=== PATIENT | female | born 1970 | race Caucasian/White ===

== ENCOUNTER 2016-12-19 13:42 | Emergency (ER) | payer OTHER, MEDICAID ==
--- NOTE | 2016-12-19 14:36 | CPEKG ---
Heart Rate: 72 RR Interval: 833 P-R Interval: 164 QRSD Interval: 88 QT Interval: 380 QTC Interval: 416 P [place]: 21 QRS [place]: 39 T Wave [place]: 39 EKG Severity - NORMAL ECG - EKG Impression: SINUS RHYTHM Electronically Signed By: Elroy Guerin 19-Dec-2016 15:15:18
--- NOTE | 2016-12-19 14:43 | EDPHY ---
H & P Smoking Status: Never smoked Time Seen by Provider: 12/19/16 14:29 HPI/ROS: HPI Headache, vertigo, shortness of breath, 46-year-old female by private vehicle with her mother. This patient has multiple complaints, she reports onset of a sensation of shortness of breath which she states is different from her asthma exacerbations. She reports she has had this for the last 3 days. She also reports associated vertigo. She describes this as the room spinning around. She also describes having a headache which she describes as being on the top of her head and a dull ache and pressure like sensation. She also complains of feeling extremely fatigued over the last several days and having left shoulder aching without any history of trauma for that time period as well.. ROS: Constitutional: No fever, no chills. As above. Eyes: No discharge. No changes in vision. ENT: No sore throat. No nasal congestion or rhinorrhea. Respiratory: No cough. As above. Cardiac: No chest pain, no palpitations. Gastrointestinal: No abdominal pain, no vomiting, no diarrhea. Genitourinary: No hematuria. No dysuria or increased frequency with urination. Musculoskeletal: No back pain. No neck pain. No myalgias or arthralgias. Skin: No rashes. Neurological: Headache as above. No focal weakness or altered sensation. As above. Past medical history: Type type 1 diabetes, chronic abdominal pain, severe PTSD with psychotic features, , carpal tunnel syndrome. Social history: She is here with her mother. She lives with her mother. Nonsmoker. No alcohol. Denies IV drugs or street drugs. Physical Exam: General Appearance: Alert, no distress. Moderately obese habitus. This patient is responding to questions appropriately and in full sentences. This patient appears well-hydrated and well-nourished. Eyes: Pupils equal and round no pallor or injection. No lid edema, erythema or injection. No nystagmus. No photophobia ENT, Mouth: Mucous membranes are moist. The pharyngeal tissues are unremarkable. No edema or swelling. No asymmetry suggestive of abscess. No erythema or exudates. Respiratory: There are no retractions, lungs are clear to auscultation with good air movement bilaterally. No wheezing. No rhonchi. No tachypnea. Cardiovascular: Regular rate and rhythm. No murmur. Gastrointestinal: Abdomen is soft and nontender, no masses, bowel sounds normal. No focal tenderness at McBurney's point. No Aguilar sign. Neurological: Motor sensory function is grossly intact. Cranial nerves are normal. Gait is normal. Skin: Warm and dry, no rashes. Musculoskeletal: Neck is supple and nontender. No pain on flexion of the neck. No tenderness on palpation of the lateral neck soft tissues as well as the suboccipital area. No carotid bruits auscultated. Extremities are symmetrical. All joints range without pain or impingement. Psychiatric: No agitation. No depression. Database: EKG: EKG time is 2:34 p.m.; EKG shows a narrow complex normal sinus rhythm with a ventricular rate of 70 to. The NH, QRS, QT intervals are within normal limits. There are no ST-T wave changes indicative of ischemic or injury pattern. No evidence of right heart strain. Interpreted by me. Imaging: CT head without contrast: Chest x-ray AP portable; the cardiac mediastinal silhouette is unremarkable. No evidence of infiltrate or pneumothorax. No acute cardiopulmonary disease process noted. Interpreted by me. Procedures: Emergency department course: IV placed. She was placed on a monitor. She was started on IV normal saline, 500 cc to be given over the next hour. She was given 25 mg of oral meclizine. 2:55 p.m., the patient's emergency department workup is just been initiated. Her care was turned over to Dr. Isaias Iyer at this time. Differential Diagnosis: The differential diagnosis on this patient includes but is not limited to peripheral vertigo, reactive airway disease, pulmonary embolism, viral syndrome. This represents a partial list of diagnoses considered. These considerations are based on history, physical exam, past history, reassessment and diagnostic testing. (Elroy Guerin) Constitutional: Initial Vital Signs Temperature (C) 36.5 C 12/19/16 13:48 Heart Rate 86 12/19/16 13:48 Respiratory Rate 16 12/19/16 13:48 Blood Pressure 151/76 H 12/19/16 13:48 O2 Sat (%) 97 12/19/16 13:48 O2 Delivery Mode Room Air Allergies/Adverse Reactions: Penicillins Allergy (Verified 07/02/15 20:57) NAUSEA PERCOCET Allergy (Uncoded 11/23/12 13:53) NAUSEA Home Medications: Medication Instructions Recorded Albuterol [Proventil Inhaler HFA 1 - 2 puffs IH Q4 PRN 09/01/13 (*)] Albuterol [Proventil Neb] 3 ml IH QID PRN 09/01/13 Aspirin [Aspirin 81mg (*)] 81 mg PO DAILY 09/01/13 Budesonide/Formoterol 160/4.5 1 puffs IH BID PRN 09/01/13 [Symbicort 160-4.5 Mcg Inh (*)] Cetirizine [ZyrTEC 10 mg (*)] 10 mg PO DAILY 09/01/13 Cholecalciferol Vit D3 [Vitamin D3 1,000 units PO DAILY 09/01/13 (*)] EPINEPHrine [Epipen] 0.3 mg IM DAILY PRN 09/01/13 Estrogen,Angelica/Me-Testosterone 1 each PO DAILY 09/01/13 [Estratest Tablet 1.25/2.5 mg] Furosemide [Lasix 20 MG (*)] 20 mg PO DAILY 09/01/13 Herbals/Supplements -Info Only 1 each PO AD 09/01/13 Humalog Pump 1 each SC AD 09/01/13 Ibuprofen [Motrin (*)] 400 mg PO BID PRN 09/01/13 LORazepam [Ativan (*)] 1 mg PO BID PRN 09/01/13 Levothyroxine [Synthroid 25 mcg 25 mcg PO DAILY06 09/01/13 (*)] Lisinopril [Zestril 5 mg (*)] 5 mg PO HS 09/01/13 Metoclopramide [Reglan 10 mg tab 10 mg PO HS 09/01/13 (*)] Minocycline HCl 100 mg PO HS 09/01/13 Montelukast Sodium [Singulair 10 10 mg PO DAILY 09/01/13 mg (*)] Multivitamins [Multivitamin (*)] 1 each PO DAILY 09/01/13 Pantoprazole Sodium [Protonix 40mg 40 mg PO BID 09/01/13 (*)] QUEtiapine FUMARATE [Seroquel 50 100 mg PO HS 09/01/13 mg (*)] Sertraline HCl [Zoloft 50mg (*)] 150 mg PO DAILY 09/01/13 buPROPion XL [Wellbutrin 150mg XL] 150 mg PO DAILY 09/01/13 guaiFENesin [Guaifenesin] 800 mg PO BID 09/01/13 traZODone [traZODONE 50MG (*)] 50 - 100 mg PO HS 09/01/13 Metoclopramide [Reglan 10 mg tab 10 mg PO QID PRN #40 tab 09/04/13 (*)] Ondansetron Odt [Zofran Odt] 4 mg PO Q4PRN PRN #20 tab 07/02/15 oxyCODONE/APAP 5/325 [Percocet 1 - 2 tab PO Q4H PRN #20 tab 07/02/15 5/325 (*)] Hydrocodone/APAP 5/325 [[place] 1 each PO Q4-6PRN PRN #8 tab 12/19/16 5/325 (*)] Medical Decision Making - Diagnostics Imaging Results: Imaging Impressions Chest X-Ray 12/19/16 14:50 Impression: Peribronchial thickening, which could be related to bronchitis or mild fluid overload. Head CT 12/19/16 14:50 Impression: 1. No significant intracranial abnormality seen. 2. Mild right frontal nonspecific sinus disease. Findings discussed with Dr. Isaias Iyer at 15:24 hour, 12/19/2016. Head CT reviewed by me and discussed with Dr. Garrison shows right frontal sinusitis but no intracranial pathology (Isaias Iyer) ED Course/Re-evaluation: Re-evaluation 3:40 p.m.--patient is stable. She does complain of headache and would like something for her headache. The patient, her mom, and I discussed imaging lab EKG results. We discussed treatment plan including the fact that the workup is normal. We discussed criteria for return and importance of follow -up and further evaluation Re-evaluation again at 4:35 p.m.--patient is stable. We again reviewed lab results as well as imaging studies. She would like meclizine called into [facility] in [place]. She would like something for headache be on Tylenol and ibuprofen. She will be given a prescription for 8 hydrocodone tablets (Isaias Iyer) Differential Diagnosis: This could be viral syndrome. We considered intracranial bleeding. No evidence for infection or meningitis. No acute coronary syndrome. (Isaias Iyer) - Data Points Laboratory Results: Laboratory Results 12/19/16 14:33 12/19/16 14:33 12/19/16 12/19/16 12/19/16 15:15 14:33 14:33 WBC RBC Hgb Hct MCV MCH MCHC RDW Plt Count MPV Neut % (Auto) Lymph % (Auto) [place] % (Auto) Eos % (Auto) Baso % (Auto) Nucleat RBC Rel Count Absolute Neuts (auto) Absolute Lymphs (auto) Absolute Monos (auto) Absolute Eos (auto) Absolute Basos (auto) Absolute Nucleated RBC Immature Gran % Immature Gran # PT 13.7 SEC SEC (12.0-15.0) INR 1.06 (0.83-1.16) APTT 21.8 SEC L SEC (23.0-38.0) D-Dimer 0.38 ug/mLFEU ug/mLFEU (0.00-0.50) Sodium 136 mEq/L mEq/L (134-144) Potassium 4.3 mEq/L mEq/L (3.5-5.2) Chloride 104 mEq/L mEq/L (97-110) Carbon Dioxide 24 mEq/l mEq/l (22-31) Anion Gap 8 mEq/L mEq/L (8-16) BUN 13 mg/dL mg/dL (7-23) Creatinine 0.8 mg/dL mg/dL (0.6-1.0) Estimated GFR > 60 Glucose 203 mg/dL H mg/dL (70-100) Calcium 9.6 mg/dL mg/dL (8.5-10.4) Creatine Kinase 49 IU/L IU/L (0-156) CK-MB (CK-2) Fraction 0.38 ng/mL ng/mL (0-3.19) Troponin I < 0.012 ng/mL ng/mL (0-0.034) NT-Pro-B Natriuret Pep 134 pg/mL H pg/mL (0-125) Urine Color PALE YELLOW Urine Appearance CLEAR Urine pH 8.0 H (5.0-7.5) Ur Specific [place] 1.006 (1.002-1.030) Urine Protein NEGATIVE (NEGATIVE) Urine Ketones NEGATIVE (NEGATIVE) Urine Blood NEGATIVE (NEGATIVE) Urine Nitrate NEGATIVE (NEGATIVE) Urine Bilirubin NEGATIVE (NEGATIVE) Urine Urobilinogen NEGATIVE EU EU (0.2-1.0) Ur Leukocyte Esterase TRACE H (NEGATIVE) Urine RBC 1-3 /hpf /hpf (0-3) Urine WBC 1-3 /hpf /hpf (0-3) Ur Epithelial Cells TRACE /lpf /lpf (NONE-1+) Urine Bacteria TRACE /hpf H /hpf (NONE SEEN) Urine Mucus TRACE /lpf /lpf (NONE-1+) Urine Glucose NEGATIVE (NEGATIVE) 12/19/16 14:33 WBC 7.32 10^3/uL 10^3/uL (3.80-9.50) RBC 4.31 10^6/uL 10^6/uL (4.18-5.33) Hgb 12.3 g/dL L g/dL (12.6-16.3) Hct 35.0 % L % (38.0-47.0) MCV 81.2 fL L fL (81.5-99.8) MCH 28.5 pg pg (27.9-34.1) MCHC 35.1 g/dL g/dL (32.4-36.7) RDW 12.4 % % (11.5-15.2) Plt Count 316 10^3/uL 10^3/uL (150-400) MPV 10.5 fL fL (8.7-11.7) Neut % (Auto) 72.5 % % (39.3-74.2) Lymph % (Auto) 15.8 % % (15.0-45.0) Noble % (Auto) 8.2 % % (4.5-13.0) Eos % (Auto) 2.5 % % (0.6-7.6) Baso % (Auto) 0.7 % % (0.3-1.7) Nucleat RBC Rel Count 0.0 % % (0.0-0.2) Absolute Neuts (auto) 5.31 10^3/uL 10^3/uL (1.70-6.50) Absolute Lymphs (auto) 1.16 10^3/uL 10^3/uL (1.00-3.00) Absolute Monos (auto) 0.60 10^3/uL 10^3/uL (0.30-0.80) Absolute Eos (auto) 0.18 10^3/uL 10^3/uL (0.03-0.40) Absolute Basos (auto) 0.05 10^3/uL 10^3/uL (0.02-0.10) Absolute Nucleated RBC 0.00 10^3/uL 10^3/uL (0-0.01) Immature Gran % 0.3 % % (0.0-1.1) Immature Gran # 0.02 10^3/uL 10^3/uL (0.00-0.10) PT INR APTT D-Dimer Sodium Potassium Chloride Carbon Dioxide Anion Gap BUN Creatinine Estimated GFR Glucose Calcium Creatine Kinase CK-MB (CK-2) Fraction Troponin I NT-Pro-B Natriuret Pep Urine Color Urine Appearance Urine pH Ur Specific [place] Urine Protein Urine Ketones Urine Blood Urine Nitrate Urine Bilirubin Urine Urobilinogen Ur Leukocyte Esterase Urine RBC Urine WBC Ur Epithelial Cells Urine Bacteria Urine Mucus Urine Glucose Medications Given: Discontinued Medications Sodium Chloride (Ns) 500 mls @ 0 mls/hr IV ONCE ONE; Wide Open PRN Reason: Protocol Stop: 12/19/16 14:50 Last Admin: 12/19/16 15:38 Dose: 500 mls Ketorolac Tromethamine (Toradol) 30 mg IVP EDNOW ONE Stop: 12/19/16 15:46 Last Admin: 12/19/16 15:54 Dose: 30 mg Meclizine HCl (Meclizine Hcl) 25 mg PO EDNOW ONE Stop: 12/19/16 14:55 Last Admin: 12/19/16 15:00 Dose: 25 mg Departure - Departure Disposition: Home, Routine, Self-Care Clinical Impression: Vertigo, Fatigue, Dyspnea Condition: Good Instructions: Vertigo (ED) Additional Instructions: Easy activity and drink plenty of fluids. Ibuprofen 600 mg every 6 hours for headache. Hydrocodone in addition for headache. Return for worsening headache , chest discomfort, trouble breathing. Recheck with Dr. Rodrigez in 1-2 days without fail Referrals: Adriana Rodrigez MD [Primary Care Provider] - 1-2 days without fail Prescriptions: Hydrocodone/APAP 5/325 [[place] 5/325 (*)] 1 each PO Q4-6PRN PRN #8 tab PRN Reason: Pain, Moderate
[2016-12-19] MEDS ORDERED: NS 500 ML IV ONE (14:49)
[2016-12-19] MEDS ORDERED: MECLIZINE HCL 25 MG TAB PO ONE (14:54)
[2016-12-19 15:05] LABS: % IMMATURE GRANULYOCYTES 0.3 % (0.0-1.1); ABSOLUTE IMMATURE GRANULOCYTES 0.02 10^3/uL (0.00-0.10); ADD DIFF? NO; ADD MORPH? NO; ADD SCAN? NO; ATYPICAL LYMPHOCYTE FLAG 10 (0-99); FRAGMENT RBC FLAG 20 (0-99); HEMOGLOBIN 12.3 g/dL (12.6-16.3); INR 1.06 (0.83-1.16); LEFT SHIFT FLG 0 (0-99); LIPEMIA HEMOLYSIS FLAG 90 (0-99); MEAN CELL HEMOGLOBIN 28.5 pg (27.9-34.1); MEAN CELL HEMOGLOBIN CONCENTR. 35.1 g/dL (32.4-36.7); MEAN CELL VOLUME 81.2 fL (81.5-99.8); MEAN PLATELET VOLUME 10.5 fL (8.7-11.7); PLATELET CLUMPS FLAG 10 (0-99); PLATELET COUNT 316 10^3/uL (150-400); PROTIME(PATIENT) 13.7 SEC (12.0-15.0); RED BLOOD CELL COUNT 4.31 10^6/uL (4.18-5.33); RED CELL DISTRIBUTION WIDTH 12.4 % (11.5-15.2)
[2016-12-19 15:06] LABS: APTT 21.8 SEC (23.0-38.0)
[2016-12-19 15:09] LABS: ANION GAP 8 mEq/L (8-16); CALCIUM 9.6 mg/dL (8.5-10.4); CARBON DIOXIDE 24 mEq/l (22-31); CHLORIDE 104 mEq/L (97-110); CREATININE 0.8 mg/dL (0.6-1.0); GLOMERULAR FILTRATION RATE > 60; GLUCOSE 203 mg/dL (70-100); POTASSIUM 4.3 mEq/L (3.5-5.2); SODIUM 136 mEq/L (134-144)
[2016-12-19 15:20] LABS: CREATINE KINASE-MB FRACTION 0.38 ng/mL (0-3.19); TROPONIN I < 0.012 ng/mL (0-0.034)
[2016-12-19] MEDS ORDERED: KETOROLAC 30 MG/1 ML SDV IVP ONE (15:45)
[2016-12-19 15:50] LABS: COLOR PALE YELLOW; LEUKOCYTE ESTERASE,URINE TRACE (NEGATIVE); NITRITE,URINE NEGATIVE (NEGATIVE)
[2016-12-19 15:56] LABS: BACTERIA TRACE /hpf (NONE SEEN); MUCUS TRACE /lpf (NONE-1+)
[2016-12-19 17:05] VITALS: BP 148/74; PULSE 88; RESP 18; TEMP 98.6; O2SAT 93
== END 2016-12-19 17:04 | disposition home or self-care (01) ==
DX: R06.00 Dyspnea, unspecified (principal); R42 Dizziness and giddiness; R53.83 Other fatigue; E86.9 Volume depletion, unspecified; E10.9 Type 1 diabetes mellitus without complications; Z79.82 Long term (current) use of aspirin
CPT/HCPCS: 70450; 71010; 93005; 96361; 96374; 99285; J1885

== ENCOUNTER → 2017-06-29 | Outpatient (CLI) | payer OTHER, MEDICAID | LOC: CIMAGING 16:10 | PROVIDERS: ATTEND Family Medicine | DX: R07.9 Chest pain, unspecified (principal) | CPT/HCPCS: 71101-PO ==

== ENCOUNTER → 2017-09-14 | Outpatient (CLI) | payer OTHER, MEDICAID | LOC: CIMAGING 16:27 | PROVIDERS: ATTEND Internal Medicine Pulmonary Disease | DX: I27.20 Pulmonary hypertension, unspecified (principal); I51.7 Cardiomegaly; F32.9 Major depressive disorder, single episode, unspecified; Z18.10 Retained metal fragments, unspecified | CPT/HCPCS: 71046-PO ==

== ENCOUNTER → 2017-09-14 | Outpatient (CLI) | payer OTHER, MEDICAID | LOC: BHFA 13:15 | PROVIDERS: ATTEND Internal Medicine Cardiovascular Disease | DX: I10 Essential (primary) hypertension (principal) ==

== ENCOUNTER → 2017-09-17 | Outpatient (CLI) | payer OTHER, MEDICAID | LOC: CIMAGING 16:44 | PROVIDERS: ATTEND Physician Assistant | DX: K59.00 Constipation, unspecified (principal); K56.699 Other intestinal obstruction unspecified as to partial versus complete obstruction | CPT/HCPCS: 74019-PO ==

== ENCOUNTER 2017-09-20 20:26 | Emergency (ER) | payer OTHER, MEDICAID ==
[2017-09-20] MEDS ORDERED: IOPAMIDOL (ISOVUE-300) 100 ML BTL ONE (20:58)
--- NOTE | 2017-09-20 20:58 | EDPHY ---
H & P Stated Complaint: Abd pain "off and on since June" Time Seen by Provider: 09/20/17 20:37 - Personal History Current Tetanus/Diphtheria Vaccine: Unsure Current Tetanus Diphtheria and Acellular Pertussis (TDAP): Unsure - Medical/Surgical History Hx Asthma: Yes Hx Chronic Respiratory Disease: No Hx Diabetes: Yes Hx Cardiac Disease: No Hx Renal Disease: No Hx Cirrhosis: No Hx Alcoholism: No Hx HIV/AIDS: No Hx Splenectomy or Spleen Trauma: No Other PMH: Diabetes 1, Asthma, Chronic functional abdominal pain, severe PTSD with recent psychotic episode (2013), Hysterectomy (knicked ureter), trigger release surg, carpal tunnel x 2 - Social History Smoking Status: Never smoked Constitutional: Initial Vital Signs Temperature (C) 37.0 C 09/20/17 20:28 Heart Rate 73 09/20/17 20:28 Respiratory Rate 18 09/20/17 20:28 Blood Pressure 139/67 H 09/20/17 20:28 O2 Sat (%) 94 09/20/17 20:28 O2 Delivery Mode Room Air Allergies/Adverse Reactions: Penicillins Allergy (Verified 07/02/15 20:57) NAUSEA PERCOCET Allergy (Uncoded 11/23/12 13:53) NAUSEA Home Medications: Medication Instructions Recorded Albuterol [Proventil Inhaler HFA 1 - 2 puffs IH Q4 PRN 09/01/13 (*)] Albuterol [Proventil Neb] 3 ml IH QID PRN 09/01/13 Aspirin [Aspirin 81mg (*)] 81 mg PO DAILY 09/01/13 Budesonide/Formoterol 160/4.5 1 puffs IH BID PRN 09/01/13 [Symbicort 160-4.5 Mcg Inh (*)] Cetirizine [ZyrTEC 10 mg (*)] 10 mg PO DAILY 09/01/13 Cholecalciferol Vit D3 [Vitamin D3 1,000 units PO DAILY 09/01/13 (*)] EPINEPHrine [Epipen] 0.3 mg IM DAILY PRN 09/01/13 Estrogen,Angelica/Me-Testosterone 1 each PO DAILY 09/01/13 [Estratest Tablet 1.25/2.5 mg] Furosemide [Lasix 20 MG (*)] 20 mg PO DAILY 09/01/13 Herbals/Supplements -Info Only 1 each PO AD 09/01/13 Humalog Pump 1 each SC AD 09/01/13 Ibuprofen [Motrin (*)] 400 mg PO BID PRN 09/01/13 LORazepam [Ativan (*)] 1 mg PO BID PRN 09/01/13 Levothyroxine [Synthroid 25 mcg 25 mcg PO DAILY06 09/01/13 (*)] Lisinopril [Zestril 5 mg (*)] 5 mg PO HS 09/01/13 Metoclopramide [Reglan 10 mg tab 10 mg PO HS 09/01/13 (*)] Minocycline HCl 100 mg PO HS 09/01/13 Montelukast Sodium [Singulair 10 10 mg PO DAILY 09/01/13 mg (*)] Multivitamins [Multivitamin (*)] 1 each PO DAILY 09/01/13 Pantoprazole Sodium [Protonix 40mg 40 mg PO BID 09/01/13 (*)] QUEtiapine FUMARATE [Seroquel 50 100 mg PO HS 09/01/13 mg (*)] Sertraline HCl [Zoloft 50mg (*)] 150 mg PO DAILY 09/01/13 buPROPion XL [Wellbutrin 150mg XL] 150 mg PO DAILY 09/01/13 guaiFENesin [Guaifenesin] 800 mg PO BID 09/01/13 traZODone [traZODONE 50MG (*)] 50 - 100 mg PO HS 09/01/13 Metoclopramide [Reglan 10 mg tab 10 mg PO QID PRN #40 tab 09/04/13 (*)] Ondansetron Odt [Zofran Odt] 4 mg PO Q4PRN PRN #20 tab 07/02/15 oxyCODONE/APAP 5/325 [Percocet 1 - 2 tab PO Q4H PRN #20 tab 07/02/15 5/325 (*)] Hydrocodone/APAP 5/325 [Alpha 1 each PO Q4-6PRN PRN #8 tab 12/19/16 5/325 (*)] Peg 3350/Na Sulf,Bicarb,Cl/KCl 4,000 ml PO BID #1 btl 09/20/17 [Golytely (RX)] Medical Decision Making - Diagnostics Imaging Results: Imaging Impressions Abdomen CT 09/20/17 20:53 Impression: 1. Mild constipation. 2. No CT evidence of appendicitis, abscess or bowel obstruction. Findings discussed with Rishi Arredondo MD at 21:53 hour, 09/20/2017. ED Course/Re-evaluation: CHIEF COMPLAINT: Abdominal pain HISTORY OF PRESENT ILLNESS: The patient is a 46 y/o female complaining of abdominal pain. She was seen by her PCP on Sunday for abdominal pain. An X-ray showed constipation and signs of a possible early bowel obstruction. She was told to do a "clean out" and did so but didn't pass much stool. Today, she called her PCP who advised her to have another X-ray tomorrow but to come to the ED if her pain increased. This evening, her pain increased prompting her visit. Her pain is mostly along both flanks, but diffuse across the abdomen. She has associated nausea. She reports she hasn't had a bowel movement in three days. She denies vomiting, bloody stool, or any other associated symptoms. REVIEW OF SYSTEMS: A 10 point review of systems was performed and is negative with the exception of the elements mentioned in the history of present illness. PHYSICAL EXAM: HR, BP, O2 Sat, RR. Temp noted General Appearance: Alert, well hydrated, appropriate, and non-toxic appearing. Head: Atraumatic without scalp tenderness or obvious injury Eyes: Pupils equal, round, reactive to light and accommodation, EOMI, no trauma , no injection. Ears: Clear bilaterally, no perforation, normal landmarks Nose: Atraumatic, no rhinorrhea, clear. Throat: There is no erythema or exudates, no lesions, normal tonsils, mucus membranes moist. Neck: Supple, nontender, no lymphadenopathy. Respiratory: No retractions, no distress, no wheezes, and no accessory muscle use. Lungs are clear to auscultation bilaterally. Cardiovascular: Regular rate and rhythm, no murmurs, rubs, or gallops. Good capillary refill all extremities. Gastrointestinal: Abdomen is diffusely tender, distended, soft, no masses, no rebound, no guarding, no peritoneal signs. Musculoskeletal: Normal active ROM of all extremities, atraumatic. Neurological: Alert, appropriate, and interactive. Skin: No rashes, good turgor, no nodules on palpation. Past medical history: Diabetes, constipation, PTSD with psychosis Past surgical history: Denies Family history: Non-contributory Social history: Mother at bedside, lives in [facility] DIAGNOSTICS/PROCEDURES/CRITICAL CARE TIME: Study: CT of the abdomen Indication: Abdominal pain Results: CT scan of the body parts was obtained. The results of the study are constipation, no obstruction. The study was read by the radiologist, Dr. Garrison. I viewed the images myself on the PACS system. DIFFERENTIAL DIAGNOSIS: The differential diagnosis for the patient's abdominal pain included but was not limited to bowel obstruction, constipation, ovarian cyst, pelvic inflammatory disease, ovarian torsion, urinary tract infection, ectopic , cholecystitis, and appendicitis. MEDICAL DECISION MAKING: The patient presents with abdominal pain. She hasn't had a bowel movement in several days. An X-ray Sunday, indicated possible signs of an early bowel obstruction. Plan for iSTAT and abdominal CT. 9:30 PM- The patient's iSTAT shows hemoglobin of 12 and hematocrit of 36. Plan for fluids and CT. 9:55 PM- CT indicates constipation but no obstruction. She will be released with Golytely and fleets enemas and directed to increase her Miralax. She has an appointment with her automotive airconditioning mechanic tomorrow. She agrees to this course of action. - Data Points Laboratory Results: 09/20/17 21:27 POC Hgb 12.2 gm/dL L gm/dL (12.6-16.3) POC Hct 36 % L % (38-47) POC Sodium 139 mEq/L mEq/L (135-145) POC Potassium 4.2 mEq/L mEq/L (3.3-5.0) POC Chloride 102 mEq/L mEq/L (97-110) POC BUN 11 mg/dL mg/dL (7-23) POC Creatinine 0.8 mg/dL mg/dL (0.6-1.0) POC Glucose 128 mg/dL H mg/dL (70-100) Point of Care Test Results: 09/20/17 21:27 POC Sodium 139 POC Potassium 4.2 POC Chloride 102 POC BUN 11 POC Creatinine 0.8 POC Glucose 128 H Departure - Departure Disposition: Home, Routine, Self-Care Clinical Impression: Constipation Qualifiers: Constipation type: unspecified constipation type Qualified Code(s): K59.00 - Constipation, unspecified Condition: Good Instructions: Constipation (ED), High Fiber Diet (ED), Fleet Enema (ED) Additional Instructions: 1. Take Golytely as directed. Do 2 fleets enemas after taking Golytely. Take Miralax 3 times daily. 2. Follow up with your automotive airconditioning mechanic tomorrow as planned. 3. Return to the emergency department for bloody stool, vomiting, or any other worsening of condition. Referrals: Adriana Rodrigez MD [Primary Care Provider] - As per Instructions Prescriptions: Peg 3350/Na Sulf,Bicarb,Cl/KCl [Golytely (RX)] 4,000 ml PO BID #1 btl Report Scribed for: Rishi Arredondo Report Scribed by: Kayleen Ceja Date of Report: 09/20/17 Time of Report: 21:06
[2017-09-20 22:17] VITALS: BP 129/67
== END 2017-09-20 22:14 | disposition home or self-care (01) ==
DX: K59.00 Constipation, unspecified (principal); E10.9 Type 1 diabetes mellitus without complications; J45.909 Unspecified asthma, uncomplicated; Z79.82 Long term (current) use of aspirin; Z90.710 Acquired absence of both cervix and uterus
CPT/HCPCS: 74177; 99285; Q9967; 82947-QW

== ENCOUNTER 2017-10-03 16:20 | Observation (INO) | payer OTHER, MEDICAID ==
--- NOTE | 2017-10-03 17:04 | EDPHY ---
H & P Stated Complaint: right sidnes numbness x 35 minutes. Time Seen by Provider: 10/03/17 16:52 HPI/ROS: CHIEF COMPLAINT: Right-sided numbness HISTORY OF PRESENT ILLNESS: 46-year-old female with diabetes and PTSD presents with sudden onset of right-sided numbness. Onset of paresthesias involving the entire right side at 1550 today. The numbness involves the right side of her face, extremities and torso. No weakness. She feels that her thoughts are somewhat muddled, but she has normal speech. Takes aspirin daily. No prior history of TIA/CVA. REVIEW OF SYSTEMS: complete 10 point ROS negative except at noted in the HPI Source: Patient Exam Limitations: No limitations - Personal History LMP (Females 10-55): Hysterectomy - Medical/Surgical History Hx Asthma: Yes Hx Chronic Respiratory Disease: No Hx Diabetes: Yes Hx Cardiac Disease: No Hx Renal Disease: No Hx Cirrhosis: No Hx Alcoholism: No Hx HIV/AIDS: No Hx Splenectomy or Spleen Trauma: No Other PMH: Diabetes 1, Asthma, Chronic functional abdominal pain, severe PTSD with psychotic episode (2013), Hysterectomy (knicked ureter), trigger release surg, carpal tunnel x 2 - Family History Significant Family History: Other (CVA) - Social History Smoking Status: Never smoked - Physical Exam Exam: General Appearance: Alert, pleasant Eyes: Pupils equal and round, no conjunctival pallor or injection ENT, Mouth: Mucous membranes moist Neck: Normal inspection Respiratory: Lungs are clear to auscultation Cardiovascular: Regular rate and rhythm Gastrointestinal: Abdomen is soft and nontender Neurological: A&O, motor 5/5, decreased sensation to light touch right facial, right upper extremity and right lower extremity Skin: Warm and dry, no rash Extremities: Nontender, no pedal edema Psychiatric: Flat affect Constitutional: Initial Vital Signs Temperature (C) 36.7 C 10/03/17 16:24 Heart Rate 79 10/03/17 16:24 Respiratory Rate 16 10/03/17 16:24 Blood Pressure 162/77 H 10/03/17 16:24 O2 Sat (%) 95 10/03/17 16:24 O2 Delivery Mode Room Air Allergies/Adverse Reactions: Penicillins Allergy (Verified 10/03/17 16:21) NAUSEA PERCOCET Allergy (Uncoded 10/03/17 16:21) NAUSEA Home Medications: Medication Instructions Recorded Albuterol [Proventil Inhaler HFA 1 - 2 puffs IH Q4 PRN 09/01/13 (*)] Albuterol [Proventil Neb] 3 ml IH QID PRN 09/01/13 Aspirin [Aspirin 81mg (*)] 81 mg PO HS 09/01/13 Budesonide/Formoterol 160/4.5 1 puffs IH BID PRN 09/01/13 [Symbicort 160-4.5 Mcg Inh (*)] Cetirizine [ZyrTEC 10 mg (*)] 10 mg PO DAILY 09/01/13 Cholecalciferol Vit D3 [Vitamin D3 1,000 units PO BID 09/01/13 (*)] EPINEPHrine [Epipen] 0.3 mg IM DAILY PRN 09/01/13 Herbals/Supplements -Info Only 1 each PO AD 09/01/13 Humalog Pump 1 each SC AD 09/01/13 Ibuprofen [Motrin (*)] 400 mg PO Q6H PRN 09/01/13 LORazepam [Ativan (*)] 1 mg PO BID PRN 09/01/13 Levothyroxine [Synthroid 25 mcg 25 mcg PO DAILY06 09/01/13 (*)] Montelukast Sodium [Singulair 10 10 mg PO DAILY 09/01/13 mg (*)] Multivitamins [Multivitamin (*)] 1 each PO DAILY 09/01/13 traZODone [traZODONE 50MG (*)] 100 - 150 mg PO HS 09/01/13 Ondansetron Odt [Zofran Odt] 4 mg PO Q4PRN PRN #20 tab 07/02/15 Atorvastatin Calcium [Lipitor 10 10 mg PO DAILY 10/03/17 mg (*)] Bupropion HCl [Wellbutrin Xl] 300 mg PO DAILY 10/03/17 Dicyclomine [Bentyl 20 MG (*)] 20 mg PO Q6H PRN 10/03/17 Estradiol [Estradiol 1 MG (*)] 1 mg PO DAILY 10/03/17 Gabapentin [Neurontin 100 MG (*)] 200 mg PO HS 10/03/17 Gabapentin [Neurontin 100 MG (*)] 300 mg PO DAILY 10/03/17 Linzess 1 ea PO DAILY 10/03/17 Omeprazole 40 mg PO DAILY 10/03/17 Prazosin HCl 8 mg PO HS 10/03/17 QUEtiapine FUMARATE [Seroquel 50 50 mg PO DAILY PRN 10/03/17 mg (*)] QUEtiapine FUMARATE [Seroquel 50 150 mg PO HS 10/03/17 mg (*)] Sertraline HCl [Zoloft 100mg (*)] 150 mg PO DAILY 10/03/17 Vraylar 1 ea PO DAILY 10/03/17 guaiFENesin [Mucinex 600 MG (*)] 1,200 mg PO BID 10/03/17 traMADol [Ultram 50 mg (*)] 50 mg PO DAILY PRN 10/03/17 Medical Decision Making - Diagnostics Imaging Results: Imaging Impressions Head CT 10/03/17 17:03 Impression: Head CT within normal limits. Initial negative results communicated to Dr. Ziegler with the patient on the CT table at 17:10. Final concordant negative results are communicated at 17:23 PM. General information for patients regarding this examination can be found at [email or web address]. If you have questions or comments about this report, please contact me at (hospital) or [phone] (cell). Head CTA 10/03/17 17:03 Impression: Negative CT angiogram of the brain. 2. CT Angiography of the Neck (With Contrast), 19:00 Clinical Indications: Right-sided numbness, stroke alert Technique: During IV administration of 90 mL of Isovue-370 intravenously, helical multidetector data acquisition was obtained from the upper thorax cephalad through the skull base. The thinly collimated data were manipulated in multiple projections on the 3D computer workstation by the radiologist. Dose reduction techniques were utilized. Findings: The common carotid arteries, carotid bifurcations and both internal carotid arteries are widely patent. Both vertebral arteries are open into the normal basilar artery. No evidence of dissection, occlusion, hemodynamically significant stenosis, or ulceration. There is mild nonflow limiting calcified and noncalcified plaque of the proximal left internal carotid artery (less than 10% by NASCET criteria) area Impression: No source for symptoms identified. Results called and discussed with ASHA ZIEGLER, at 10/03/2017 19:23 Note: All stenoses are calculated using NASCET Criteria. General information for patients regarding this examination can be found at [email or web address]. If you have questions or comments about this report, please contact me at (hospital) or [phone] (cell). Neck CTA 10/03/17 17:12 Impression: Negative CT angiogram of the brain. 2. CT Angiography of the Neck (With Contrast), 19:00 Clinical Indications: Right-sided numbness, stroke alert Technique: During IV administration of 90 mL of Isovue-370 intravenously, helical multidetector data acquisition was obtained from the upper thorax cephalad through the skull base. The thinly collimated data were manipulated in multiple projections on the 3D computer workstation by the radiologist. Dose reduction techniques were utilized. Findings: The common carotid arteries, carotid bifurcations and both internal carotid arteries are widely patent. Both vertebral arteries are open into the normal basilar artery. No evidence of dissection, occlusion, hemodynamically significant stenosis, or ulceration. There is mild nonflow limiting calcified and noncalcified plaque of the proximal left internal carotid artery (less than 10% by NASCET criteria) area Impression: No source for symptoms identified. Results called and discussed with ASHA ZIEGLER, at 10/03/2017 19:23 Note: All stenoses are calculated using NASCET Criteria. General information for patients regarding this examination can be found at [email or web address]. If you have questions or comments about this report, please contact me at (hospital) or [phone] (cell). ED Course/Re-evaluation: This patient presents with new onset of right-sided numbness. Stroke alert called. NIH stroke score is 1. Consulted with Dr. Barlow from [facility]. Pt not a TPA candidate. The CT scan of the brain is unremarkable, read by the radiologist. Aspirin 325 mg orally given. CTA of the brain and neck normal, read by the radiologist. Results discussed with the patient and her mother. Neurologic exam remained unchanged throughout. The patient continued to have right-sided numbness. The hospitalist was consulted for admission for further evaluation of possible CVA. Differential Diagnosis: Altered mental status including but not limited to hypoglycemia, infectious process, electrolyte abnormality, head injury, CVA, and intoxicants. - Data Points Laboratory Results: Laboratory Results 10/03/17 18:00 10/03/17 18:00 10/03/17 10/03/1718 18:00 18:00 18:00 WBC 8.25 10^3/uL 10^3/uL (3.80-9.50) RBC 4.54 10^6/uL 10^6/uL (4.18-5.33) Hgb 13.0 g/dL g/dL (12.6-16.3) Hct 37.1 % L % (38.0-47.0) MCV 81.7 fL fL (81.5-99.8) MCH 28.6 pg pg (27.9-34.1) MCHC 35.0 g/dL g/dL (32.4-36.7) RDW 12.6 % % (11.5-15.2) Plt Count 314 10^3/uL 10^3/uL (150-400) MPV 10.0 fL fL (8.7-11.7) Neut % (Auto) 72.7 % % (39.3-74.2) Lymph % (Auto) 17.2 % % (15.0-45.0) [place] % (Auto) 6.3 % % (4.5-13.0) Eos % (Auto) 3.0 % % (0.6-7.6) Baso % (Auto) 0.6 % % (0.3-1.7) Nucleat RBC Rel Count 0.0 % % (0.0-0.2) Absolute Neuts (auto) 5.99 10^3/uL 10^3/uL (1.70-6.50) Absolute Lymphs (auto) 1.42 10^3/uL 10^3/uL (1.00-3.00) Absolute Monos (auto) 0.52 10^3/uL 10^3/uL (0.30-0.80) Absolute Eos (auto) 0.25 10^3/uL 10^3/uL (0.03-0.40) Absolute Basos (auto) 0.05 10^3/uL 10^3/uL (0.02-0.10) Absolute Nucleated RBC 0.00 10^3/uL 10^3/uL (0-0.01) Immature Gran % 0.2 % % (0.0-1.1) Immature Gran # 0.02 10^3/uL 10^3/uL (0.00-0.10) PT 13.8 SEC SEC (12.0-15.0) INR 1.04 (0.83-1.16) APTT 23.4 SEC SEC (23.0-38.0) Sodium 139 mEq/L mEq/L (135-145) Potassium 4.4 mEq/L mEq/L (3.5-5.2) Chloride 101 mEq/L mEq/L (97-110) Carbon Dioxide 28 mEq/l mEq/l (22-31) Anion Gap 10 mEq/L mEq/L (8-16) BUN 16 mg/dL mg/dL (7-23) Creatinine 0.8 mg/dL mg/dL (0.6-1.0) Estimated GFR > 60 Glucose 115 mg/dL H mg/dL (70-100) Calcium 9.7 mg/dL mg/dL (8.5-10.4) Total Bilirubin 0.5 mg/dL mg/dL (0.1-1.4) AST 21 IU/L IU/L (14-46) ALT 31 IU/L IU/L (9-52) Alkaline Phosphatase 135 IU/L H IU/L (38-126) Total Protein 7.0 g/dL g/dL (6.3-8.2) Albumin 4.2 g/dL g/dL (3.5-5.0) Medications Given: Acetaminophen (Tylenol) 650 mg PO Q4HRS PRN PRN Reason: Pain, Mild/Fever, Can Take PO Stop: 04/01/18 20:58 Last Admin: 10/03/17 21:57 Dose: 650 mg Gabapentin (Neurontin) 200 mg PO [facility] Stop: 04/01/18 20:59 Last Admin: 10/03/17 22:17 Dose: 200 mg Guaifenesin (Mucinex) 1,200 mg PO BID SUKHJINDER Stop: 04/01/18 21:14 Last Admin: 10/03/17 21:56 Dose: 1,200 mg Prazosin HCl (Minipress) 8 mg PO [facility] Stop: 04/01/18 20:59 Last Admin: 10/03/17 22:18 Dose: 8 mg Quetiapine Fumarate (Seroquel) 150 mg PO [facility] Stop: 04/01/18 20:59 Last Admin: 10/03/17 22:17 Dose: 150 mg Trazodone HCl (Trazodone) 100 - 150 mg PO HS SUKHJINDER Stop: 04/01/18 20:59 Last Admin: 10/03/17 22:18 Dose: 150 mg Discontinued Medications Aspirin (Aspirin) 325 mg PO EDNOW ONE Stop: 10/03/17 18:58 Last Admin: 10/03/17 19:14 Dose: 324 mg Lorazepam (Ativan Injection) 1 mg IVP ONCE ONE Stop: 10/03/17 21:16 Last Admin: 10/03/17 21:19 Dose: 1 mg Departure - Departure Disposition: [facility] Inpatient Acute Clinical Impression: Numbness on right side, Acute ischemic stroke Condition: Good
--- NOTE | 2017-10-03 17:18 | CPEKG ---
Heart Rate: 77 RR Interval: 779 P-R Interval: 164 QRSD Interval: 86 QT Interval: 380 QTC Interval: 431 P [place]: 36 QRS [place]: 38 T Wave [place]: 48 EKG Severity - NORMAL ECG - EKG Impression: SINUS RHYTHM Electronically Signed By: Michelle Jin 03-Oct-2017 23:09:05
[2017-10-03] MEDS ORDERED: IOPAMIDOL (ISOVUE 370) 100 ML BTL IV ONE (18:06)
[2017-10-03 18:13] LABS: PLATELET COUNT 314 10^3/uL (150-400)
[2017-10-03 18:35] LABS: INR 1.04 (0.83-1.16); PROTIME(PATIENT) 13.8 SEC (12.0-15.0)
[2017-10-03] MEDS ORDERED: ASPIRIN 81 MG CHEWABLE TAB PO ONE (18:57)
[2017-10-03] MEDS ORDERED: LORazepam 0.5 MG TAB PO PRN (20:59)
[2017-10-03] MEDS ORDERED: LABETALOL HCL 5 MG/ML 20 ML MDV IVP PRN (20:59)
[2017-10-03] MEDS ORDERED: oxyCODONE IR 5 MG TAB PO PRN (20:59)
[2017-10-03] MEDS ORDERED: ONDANSETRON 4 MG/2 ML VIAL IVP PRN (20:59)
[2017-10-03] MEDS ORDERED: LORazepam 2 MG/ML INJ IVP PRN (20:59)
[2017-10-03] MEDS ORDERED: ONDANSETRON DISINTEGRATING 4 MG TAB PO PRN (20:59)
[2017-10-03] MEDS ORDERED: PRAZOSIN HCL 1 MG CAP PO SCH (21:00)
[2017-10-03] MEDS ORDERED: QUEtiapine FUMARATE 50 MG TAB PO SCH (21:00)
[2017-10-03] MEDS ORDERED: traZODone 50 MG TAB PO SCH (21:00)
[2017-10-03] MEDS ORDERED: GABAPENTIN 100 MG CAP PO SCH (21:00)
[2017-10-03] MEDS ORDERED: IBUPROFEN 200 MG TAB PO PRN (21:04)
[2017-10-03] MEDS ORDERED: DICYCLOMINE 20 MG TAB PO PRN (21:04)
[2017-10-03] MEDS ORDERED: ALBUTEROL 3 ML DEYVIAL IH PRN (21:04)
[2017-10-03] MEDS ORDERED: ALBUTEROL 60 PUFFS/8 GM MDI IH PRN (21:04)
[2017-10-03] MEDS ORDERED: QUEtiapine FUMARATE 50 MG TAB PO PRN (21:04)
[2017-10-03] MEDS ORDERED: BUDESONIDE/FORMOTEROL 160/4.5 60 PUFFS/MDI IH PRN (21:04)
[2017-10-03] MEDS ORDERED: traMADol 50 MG TAB PO PRN (21:04)
[2017-10-03] MEDS ORDERED: HUMALOG PUMP SC SCH (21:15)
[2017-10-03] MEDS ORDERED: LORazepam 2 MG/ML INJ IVP ONE (21:15)
[2017-10-03] MEDS ORDERED: D50W 25 GM/50 ML SYR IVP PRN (21:21)
[2017-10-03] MEDS ORDERED: INSULIN PUMP, PATIENT OWN 1 EA MISC SCH (21:30)
[2017-10-03] MEDS: guaiFENesin 600 MG TAB.ER PO SCH (21:56)
[2017-10-03] MEDS: ACETAMINOPHEN 325 MG TAB PO PRN (21:57)
--- NOTE | 2017-10-03 22:22 | PDGENHP ---
History and Physical - Chief Complaint right sided numbness - History of Present Illness 46 yo F with PMH of DM, PTSD/anxiety/depression admitted with c/o right sided weakness present since 350pm today. It began while she was in her counselor's office. It involves her face, arm, torso and down to her toes. She denies any real weakness associated with it, but states she is diffusely weak. She also notes that she has been in "crazy mode" recently due to the unexpected recent of her sister in May. She notes that it has led to her having increased pain and anxiety. She denies any recent illness, no fever or chills, no chest pain or sob. History Information - Allergies/Home Medication List Allergies/Adverse Reactions: Penicillins Allergy (Verified 10/03/17 16:21) NAUSEA PERCOCET Allergy (Uncoded 10/03/17 16:21) NAUSEA Home Medications: Albuterol [Proventil Inhaler HFA (*)] 1 - 2 puffs IH Q4 PRN 09/01/13 [Last Taken 3 Days Ago ~09/30/17] Albuterol [Proventil Neb] 3 ml IH QID PRN 09/01/13 [Last Taken Unknown] Aspirin [Aspirin 81mg (*)] 81 mg PO HS 09/01/13 [Last Taken 10/02/17] Budesonide/Formoterol 160/4.5 [Symbicort 160-4.5 Mcg Inh (*)] 1 puffs IH BID PRN 09/01/13 [Last Taken 10/01/17] Cetirizine [ZyrTEC 10 mg (*)] 10 mg PO DAILY 09/01/13 [Last Taken 10/03/17] Cholecalciferol Vit D3 [Vitamin D3 (*)] 1,000 units PO BID 09/01/13 [Last Taken 10/03/17 09:00] EPINEPHrine [Epipen] 0.3 mg IM DAILY PRN 09/01/13 [Last Taken Unknown] Herbals/Supplements -Info Only 1 each PO AD 09/01/13 [Last Taken 09/01/13] Humalog Pump 1 each SC AD 09/01/13 [Last Taken 10/03/17] Ibuprofen [Motrin (*)] 400 mg PO Q6H PRN 09/01/13 [Last Taken Unknown] LORazepam [Ativan (*)] 1 mg PO BID PRN 09/01/13 [Last Taken 10/02/17] Levothyroxine [Synthroid 25 mcg (*)] 25 mcg PO DAILY06 09/01/13 [Last Taken 02/12] Montelukast Sodium [Singulair 10 mg (*)] 10 mg PO DAILY 09/01/13 [Last Taken 02/12] Multivitamins [Multivitamin (*)] 1 each PO DAILY 09/01/13 [Last Taken 10/03/17] traZODone [traZODONE 50MG (*)] 100 - 150 mg PO HS 09/01/13 [Last Taken 10/02/17] Atorvastatin Calcium [Lipitor 10 mg (*)] 10 mg PO DAILY 10/03/17 [Last Taken 02/12] Bupropion HCl [Wellbutrin Xl] 300 mg PO DAILY 10/03/17 [Last Taken 10/03/17] Dicyclomine [Bentyl 20 MG (*)] 20 mg PO Q6H PRN 10/03/17 [Last Taken 10/02/17] Estradiol [Estradiol 1 MG (*)] 1 mg PO DAILY 10/03/17 [Last Taken 10/03/17] Gabapentin [Neurontin 100 MG (*)] 200 mg PO HS 10/03/17 [Last Taken 10/02/17] Gabapentin [Neurontin 100 MG (*)] 300 mg PO DAILY 10/03/17 [Last Taken 10/03/17] Omeprazole 40 mg PO DAILY 10/03/17 [Last Taken 10/03/17] Prazosin HCl 8 mg PO HS 10/03/17 [Last Taken 10/02/17] QUEtiapine FUMARATE [Seroquel 50 mg (*)] 50 mg PO DAILY PRN 10/03/17 [Last Taken 10/02/17] QUEtiapine FUMARATE [Seroquel 50 mg (*)] 150 mg PO HS 10/03/17 [Last Taken 10/02] Sertraline HCl [Zoloft 100mg (*)] 150 mg PO DAILY 10/03/17 [Last Taken 10/03/17] Vraylar 1 ea PO DAILY 10/03/17 [Last Taken 10/03/17] guaiFENesin [Mucinex 600 MG (*)] 1,200 mg PO BID 10/03/17 [Last Taken 10/03/17 09:00] traMADol [Ultram 50 mg (*)] 50 mg PO DAILY PRN 10/03/17 [Last Taken 10/03/17] I have personally reviewed and updated: family history, medical history, social history, surgical history - Past Medical History asthma, coronary artery disease, CHF (diastolic), diabetes type 1, psychiatric history (ptsd with prior psychosis, depression/anxiety) Additional medical history: chronic functional abdominal pain - Surgical History Reports: hysterectomy Additional surgical history: carpal tunnel surgery. trigger finger release surgery - Family History Positive for: stroke - Social History Smoking Status: Never smoked Alcohol Use: None Drug Use: None Review of Systems Review of Systems: ROS: 10pt was reviewed & negative except for what was stated in HPI & below Physical Exam Physical Exam: Temp Pulse Resp BP Pulse Ox 37.1 C 73 16 159/84 H 95 10/03/17 20:37 10/03/17 20:37 10/03/17 20:37 10/03/17 20:37 10/03/17 20:37 Constitutional: no apparent distress, appears nourished, obese Eyes: PERRL, anicteric sclera Ears, Nose, Mouth, Throat: moist mucous membranes, hearing normal Cardiovascular: regular rate and rhythym, no murmur, rub, or gallop, No edema Respiratory: no respiratory distress, no rales or rhonchi, clear to auscultation Gastrointestinal: normoactive bowel sounds, soft, non-tender abdomen Genitourinary: no bladder fullness Skin: warm, normal color Musculoskeletal: no muscle tenderness, other (changeable weakness, effort dependent) Neurologic: AAOx3, CN II-XII Intact, No sensation intact bilaterally (states decreased sensation on right), No weakness Psychiatric: anxious Lab Data & Imaging Review 10/03/17 18:00 10/03/17 18:00 WBC 8.25 10^3/uL (3.80-9.50) 10/03/17 18:00 RBC 4.54 10^6/uL (4.18-5.33) 10/03/17 18:00 Hgb 13.0 g/dL (12.6-16.3) 10/03/17 18:00 Hct 37.1 % (38.0-47.0) L 10/03/17 18:00 MCV 81.7 fL (81.5-99.8) 10/03/17 18:00 MCH 28.6 pg (27.9-34.1) 10/03/17 18:00 MCHC 35.0 g/dL (32.4-36.7) 10/03/17 18:00 RDW 12.6 % (11.5-15.2) 10/03/17 18:00 Plt Count 314 10^3/uL (150-400) 10/03/17 18:00 MPV 10.0 fL (8.7-11.7) 10/03/17 18:00 Neut % (Auto) 72.7 % (39.3-74.2) 10/03/17 18:00 Lymph % (Auto) 17.2 % (15.0-45.0) 10/03/17 18:00 [place] % (Auto) 6.3 % (4.5-13.0) 10/03/17 18:00 Eos % (Auto) 3.0 % (0.6-7.6) 10/03/17 18:00 Baso % (Auto) 0.6 % (0.3-1.7) 10/03/17 18:00 Nucleat RBC Rel Count 0.0 % (0.0-0.2) 10/03/17 18:00 Absolute Neuts (auto) 5.99 10^3/uL (1.70-6.50) 10/03/17 18:00 Absolute Lymphs (auto) 1.42 10^3/uL (1.00-3.00) 10/03/17 18:00 Absolute Monos (auto) 0.52 10^3/uL (0.30-0.80) 10/03/17 18:00 Absolute Eos (auto) 0.25 10^3/uL (0.03-0.40) 10/03/17 18:00 Absolute Basos (auto) 0.05 10^3/uL (0.02-0.10) 10/03/17 18:00 Absolute Nucleated RBC 0.00 10^3/uL (0-0.01) 10/03/17 18:00 Immature Gran % 0.2 % (0.0-1.1) 10/03/17 18:00 Immature Gran # 0.02 10^3/uL (0.00-0.10) 10/03/17 18:00 PT 13.8 SEC (12.0-15.0) 10/03/17 18:00 INR 1.04 (0.83-1.16) 10/03/17 18:00 APTT 23.4 SEC (23.0-38.0) 10/03/17 18:00 Sodium 139 mEq/L (135-145) 10/03/17 18:00 Potassium 4.4 mEq/L (3.5-5.2) 10/03/17 18:00 Chloride 101 mEq/L (97-110) 10/03/17 18:00 Carbon Dioxide 28 mEq/l (22-31) 10/03/17 18:00 Anion Gap 10 mEq/L (8-16) 10/03/17 18:00 BUN 16 mg/dL (7-23) 10/03/17 18:00 Creatinine 0.8 mg/dL (0.6-1.0) 10/03/17 18:00 Estimated GFR > 60 10/03/17 18:00 Glucose 115 mg/dL (70-100) H 10/03/17 18:00 Calcium 9.7 mg/dL (8.5-10.4) 10/03/17 18:00 Total Bilirubin 0.5 mg/dL (0.1-1.4) 10/03/17 18:00 AST 21 IU/L (14-46) 10/03/17 18:00 ALT 31 IU/L (9-52) 10/03/17 18:00 Alkaline Phosphatase 135 IU/L (38-126) H 10/03/17 18:00 Total Protein 7.0 g/dL (6.3-8.2) 10/03/17 18:00 Albumin 4.2 g/dL (3.5-5.0) 10/03/17 18:00 Visualized and Interpreted imaging results: Yes Interpretation: head CT negative. head/neck CTA negative Visualized and Interpreted EKG results: Yes EKG Interpretation: Positive for: normal sinsus rhythm Assessment & Plan Assessment: 46 yo F with PMH of DM as well as ptsd/depression and anxiety admitted with subjective right sided numbness # right sided numbness: with unusual neurologic exam that seems less consistent with stroke or tia, imaging unremarkable. Continued on asa, neurology consulted. Teleneurology consulted and did not feel that TPA would be indicated given unusual exam. Will get echo in am, will hold off on further imaging pending neuro consult in am. Lipid panel ordered. # DM1: continue insulin pump, glucose well controlled on arrival # PTSD/depression/anxiety: with prior issues with psychosis and less well controlled in the setting of recent of patients sister. Conversion type disorder possible, but as above, pending neurology consult. # chronic functional abdominal pain: continue gabapentin # RAD: continue symbicort, singulair. No e/o acute exacerbation. # polypharmacy: recommend patient f/u with her pcp to determine if medication list can be consolidated # dispo: observation status Patient new to my care. Old records reviewed and summarized as above. Care plan reviewed with ER doctor including plans for neuro consult.
--- NOTE | 2017-10-03 22:40 | GHP ---
[f rep st] HISTORY AND PHYSICAL DATE OF ADMISSION: 10/03/2017 CHIEF COMPLAINT: Right-sided numbness. HISTORY OF PRESENT ILLNESS: This is a 46-year-old female with past medical history that includes glenda betes, PTSD, depression, and anxiety, who presents with new onset of right-sided numbness and tinglin g. She states the symptoms began around 3:50 p.m. today. She states she was sitting in her counselo r's office at the time that her symptoms began. It involves her entire right face, right arm, right leg. She denies any real specific weakness, other than somewhat generalized weakness. She feels as if this is affecting her right eye, in that she feels as if she cannot blink normally. She states sh e initially had some difficulty with swallowing, but that has since resolved. She also describes hav ing significant issues recently in dealing with the recent of her sister. This was an unexpect ed , and the patient notes that she has been in "crazy mode" ever since that occurred in May . She notes that she has had significant diffuse pain that she attributes to dealing with the of her sister. She states she is very concerned that nothing will be found to explain her symptoms a nd that this is almost more concerning to her than being told that she has something seriously wrong with her. PAST MEDICAL HISTORY: 1. Type 1 diabetes, complications of gastroparesis. 2. Reactive airways disease. 3. Hypothyroidism. 4. PTSD/depression/anxiety. 5. NSTEMI. 6. Fatty liver disease. 7. Chronic functional abdominal pain. 8. Prior psychotic episode associated with her PTSD. PAST SURGICAL HISTORY: 1. Hysterectomy. 2. Trigger release surgery. 3. Carpal tunnel surgery x2. FAMILY HISTORY: Notable for CVA in various family members. SOCIAL HISTORY: Patient is a nonsmoker and lives independently. REVIEW OF SYSTEMS: 10-point review obtained and negative except as per HPI. MEDICATIONS: 1. Trazodone. 2. Tramadol. 3. Guaifenesin. 4. Sertraline. 5. Quetiapine. 6. Prazosin. 7. Zofran. 8. Omeprazole. 9. Multivitamin. 10. Singular. 11. Levothyroxine. 12. Ativan. 13. Ibuprofen. 14. Humalog pump. 15. Gabapentin. 16. Estradiol. 17. EpiPen. 18. Bentyl. 19. Vitamin D3. 20. Cetirizine. 21. Wellbutrin. 22. Symbicort. 23. Atorvastatin. 24. Aspirin. 25. Albuterol nebs. ALLERGIES: Penicillin. PHYSICAL EXAMINATION: VITAL SIGNS: BP 159/84, heart rate 73, respiratory rate 16, O2 sats 95% on ro om air, temperature is 37.1. GENERAL APPEARANCE: This is an obese female. She is awake a nd alert. She is anxious. EYES: Anicteric. HENT: Oropharynx clear. CARDIOVASCULAR: Regular rat e and rhythm and rhythm, no M/R/G. PULMONARY: CTA bilaterally. Normal work of breathing. ABDOMEN: Obese, soft, nontender. Positive bowel sounds. EXTREMITIES: No clubbing, cyanosis, or edema. SK IN: Warm, dry, well perfused. NEURO/PSYCH: Patient is oriented and appropriate, she is anxious and intermittently tearful, she does have subjective decreased sensation all over her right side from he r face down to her toes, strength testing is equivocal and changing, and does seem to be effort-relat ed. CLINICAL DATA: Labs reviewed, and CBC is unremarkable. Coags are unremarkable. Chemistry notable o nly for glucose of 115. Head CT personally reviewed and interpreted is negative for any acute abnormalities. Head and neck CTA are both negative. EKG personally reviewed and interpreted shows sinus rhythm. ASSESSMENT/PLAN: A 46-year-old female, past medical history of diabetes and some psychiatric issues. /[id number]/MOD
[2017-10-04] MEDS ORDERED: LEVOTHYROXINE 25 MCG TAB PO SCH (06:00)
--- NOTE | 2017-10-04 08:12 | GCON ---
[f rep st] CONSULTATION NEUROLOGIC CONSULTATION REFERRING PHYSICIAN: Saritha Helms MD HISTORY: The patient is a 46-year-old woman who has multiple medical problems, but is specifically b eing evaluated because of the development at 3:30 yesterday of some acute right-sided numbness affect ing face, arm and leg. She was working with her therapist at the time. She has not had any recent i njury or specific trauma. She says it might be a little bit weak. She has a mild degree of headache . She does not have history of migraine. She has not had fever, chills, nausea, vomiting, or diarrh ea. No chest pain, palpitations, or shortness of breath. She has never had a similar phenomenon bef ore. She came to the hospital and was evaluated in the emergency department with Dr. Jin. She had a head CT and CT angiogram of the head and neck that failed to identify any specific anomaly to expla in symptoms. She was also complaining that her thoughts were a little bit off. She talked to [facility] for an evaluation and had an NIH Stroke Scale of 1. I did not feel she would be a good candidate for tPA because of the very minimal finding. She was admitted for ongoing evaluation. Adm itting laboratory studies were rather unrevealing. PAST MEDICAL HISTORY: Notable for diabetes as well as history of mental health problems with psychos is, PTSD, fatty liver, chronic functional abdominal pain, depression, anxiety, and reactive airway di sease with hypothyroidism. FAMILY HISTORY: Notable for stroke. She is a nonsmoker who lives independently. REVIEW OF SYSTEMS: 10-point review of systems unremarkable except for that noted above. MEDICATIONS: See admission history and physical for her 25 medications. When she came into the hosp ital, she was not on routine aspirin therapy. She is now on 81 mg of aspirin since admission ALLERGIES: Allergy to penicillin. PHYSICAL EXAMINATION: VITAL SIGNS: Blood pressure is 98/59, pulse of 73, respirations 14, temperatu re 36.6. GENERAL: She is overweight, in no acute distress. EYES: Clear. NECK: Supple with no br uits or masses. HEENT: Pupils are 3 mm and reactive. Extraocular movements are intact. Normal faci al strength, but she reports decreased facial sensation on the right. Palate elevates symmetrically. Tongue protrudes midline. Hearing is preserved. NEUROLOGIC: Motor exam normal muscle bulk and ton e with 5/5 strength. Sensation is diminished to temperature and light touch on the right side relati ve to the left in the arm and leg, but otherwise unremarkable. Reflexes are 1+ and symmetric. No Ba binski signs. No ataxia. DIAGNOSTIC STUDIES: I have reviewed all the diagnostic studies and do not see any significant stenos es on the CT angiogram. Head CT is unremarkable. Her LDL cholesterol was 78. She has elevated hemo globin A1c of 7.8, otherwise unremarkable electrolytes. IMPRESSION: Total unit time of 70 minutes with greater than 50% of time counseling and coordination of care. We reviewed all of the details about possible explanations for this including a small vesse l stroke related to a risk factor of diabetes in particular. A left thalamic infarction could certai nly present with a pure sensory syndrome on the right. Otherwise, a functional disorder would be a d ifferential consideration or other inflammatory process, but those are relatively less likely. PLAN: The plan will be to obtain a brain MRI without contrast and continue the aspirin therapy for n ow. We can also consider statin therapy, even though she has a good LDL. If there is definitely a s troke, then I would advise we use statin therapy. /[id number]/MODL
[2017-10-04] MEDS: guaiFENesin 600 MG TAB.ER PO SCH (08:39)
[2017-10-04] MEDS ORDERED: ATORVASTATIN CALCIUM 10 MG TAB PO SCH (09:00)
[2017-10-04] MEDS ORDERED: CHOLECALCIFEROL VIT D3 1,000 UNITS TAB PO SCH (09:00)
[2017-10-04] MEDS ORDERED: GABAPENTIN 100 MG CAP PO SCH (09:00)
[2017-10-04] MEDS ORDERED: CETIRIZINE 10 MG TAB PO SCH (09:00)
[2017-10-04] MEDS ORDERED: VRAYLAR PO SCH (09:00)
[2017-10-04] MEDS ORDERED: MONTELUKAST SODIUM 10 MG TAB PO SCH (09:00)
[2017-10-04] MEDS ORDERED: ENOXAPARIN 40 MG/0.4 ML SYR SC SCH (09:00)
[2017-10-04] MEDS ORDERED: buPROPion XL 150 MG TAB PO SCH (09:00)
[2017-10-04] MEDS ORDERED: ASPIRIN 81 MG CHEWABLE TAB PO SCH (09:00)
[2017-10-04] MEDS ORDERED: SERTRALINE HCL 100 MG TAB PO SCH (09:00)
[2017-10-04] MEDS ORDERED: PANTOPRAZOLE SODIUM 40 MG TAB PO SCH (09:00)
[2017-10-04] MEDS ORDERED: MULTIVITAMINS 1 EACH TAB PO SCH (09:00)
[2017-10-04] MEDS ORDERED: ESTRADIOL 1 MG TAB PO SCH (09:00)
--- NOTE | 2017-10-04 11:41 | ASMTCMCOM ---
CM Note CM Note Notes: Pt admitted w/R side numbness. she will have MRI today. PT and SP have both cleared her. Pt's mom in room w/her. Discussed w/RN. Anticipate dc home w/no CM needs but CM will follow. Date Signed: 10/04/2017 11:41 AM Electronically Signed By:Laquita Barnes RN
[2017-10-04 11:42] VITALS: BP 128/50
--- NOTE | 2017-10-04 13:25 | PDDCSUM ---
Discharge Summary Discharge Summary: DISCHARGE DIAGNOSES: -acute onset of right-sided numb sensations, without significant examination findings or obvious clinical explanation -no evidence of stroke or other central nervous system cause with unremarkable MRI brain -PTSD, anxiety disorder, with recent increase in symptomatology, on chronic medications and currently in therapy -diabetes mellitus type 2 well controlled with an insulin pump -hyperlipidemia with LDL 78 on statin therapy -takes a chronic daily 81 mg aspirin CONSULTANTS: Dr. Felix Lancaster neurology PROCEDURES: CTs of head without significant abnormality, MRI brain without abnormality HOSPITAL COURSE SUMMARY: This patient presented to the hospital after having onset of some right-sided numbness while in her mental health therapists office. She came in to the ER for assessment where she was found have her also a normal neurologic exam and no specific findings to explain her symptom. CT of the head was normal and CT angios were unremarkable. She was assessed by tele neurology examination and there was not a finding for the neurologist that suggested a likely stroke and tPA was not recommended. MRI of the brain was normal so did not show any evidence of stroke despite ongoing symptoms. There is no fever, no evidence of an inflammatory condition such as an autoimmune or vasculitic illness. She does not have a syndrome neurologically that is suggestive of anything like mononeuritis multiplex. On follow-up the 2nd day here she complains of numbness across both sides of the face without any painful paresthesias and she has no demonstrable weakness and no objective findings of sensory loss. Her laboratory studies have been unremarkable other than the to mention she is diabetic and has a hemoglobin A1c of 7 and an LDL of 78. At this point the cause of her subjective numb sensations is uncertain. The patient has had of significant stressful loss with the of her sister about 3 months ago, and since that time she has had worsening of her mental health symptoms, development of what she calls "total body pain"which has been present now for about 3 months, as well as a variety of other subjective symptoms for which there have been no cause is found. It is possible that this is numb sensation is a functional symptom. However we are recommending that she follow up in neurology clinic within a couple of weeks to assure that this syndrome is not progressing into some other concerning syndrome such progressive neurologic disorder or some other inflammatory illness. At this point stable for discharge to home. PENDING TEST RESULTS: None MEDICATION CHANGES: None FOLLOW-UP PLAN: In neurology clinic in approximately 2 weeks With her primary care physician and her mental health providers, ongoing Greater than 35 minutes bedside and care coordination time today
[2017-10-04] MEDS: ACETAMINOPHEN 325 MG TAB PO PRN (13:47)
--- NOTE | 2017-10-04 15:07 | ECHO ---
[email or web address] [address] Main: [phone] Fax: Transthoracic Echocardiogram Name: TORIE ALDANA MR#: [id number] Study Date: 10/04/2017 Study Time: 11:03 AM Date of : 1970 Age: 46 year(s) Height: 175.3 cm (69 in.) Weight: 97.52 kg (215 lb.) BSA: 2.13 m2 Gender: Female Examination: Echo with Agitated Saline Indication: ischemic stroke with bubble Image Quality: Adequate Contrast: I.V. dose of agitated saline Requested by: Saritha Helms BP: 139 mmHg/79 mmHg Heart Rate: Rhythm: Normal sinus rhythm Indication: ischemic stroke with bubble Procedure Staff Principal Clerk Typist: Suly Howard [facility] Reading Physician: Rian Menjivar MD Requesting Provider: Conclusions: Normal size left ventricle. Normal global systolic LV function. EF is 74 %. An agitated saline study was performed and was negative for intracardiac shunting. The mitral valve is normal in appearance and function. The aortic valve is tri-leaflet and functions normally. The pulmonary artery pressure could not be adequately estimated. When compared to the 09/02/13 study. There is no significant change. Measurements: Chambers Valvular Assessment AV/MV Valvular Assessment TV/PV Normal Normal Normal Name Value Range Name Value Range Name Value Range Ao Uma (MM): 3.0 cm (2.2 cm-3.7 AV Vmax: 1.55 m/s (1 m/s-1.7 PV Vmax: 1.18 m/s (0.6 m/s-0.9 cm) m/s) m/s) IVSd (2D): 1.0 cm (0.6 cm-1.1 AV maxP mmHg ( - ) PV PGmax: 6 mmHg ( - ) cm) LVOT Vmax: 1.12 m/s (0.7 m/s-1.1 LVDd (2D): 4.8 cm (3.9 cm-5.3 m/s) cm) MV E Vmax: 0.67 m/s ( - ) LVDs (2D): 2.7 cm (2.1 cm-4 MV A Vmax: 0.50 m/s ( - ) cm) MV E/A: 1.34 ( - ) LVPWd (2D): 1.1 cm ( - ) LVEF (BP): 74 % (>=55 %) RVDd(2D): 2.4 cm (1.9 cm-3.8 cmmm) Continued Measurements: Chambers Valvular Assessment AV/MV Name Value Name Value Patient: TORIE ALDANA Study Date: 10/04/2017 Page 1 of 2 11:03 AM LADs: 4.0 cm MV DecTime: 246 m/s LADs Lon.6 cm MV E' Septal: 0.08 m/s LA Area: 10.3 cm2 MV E/E' Septal: 7.90 LA Volume: 26 ml MV E/E' Lateral: 5.40 LA Volume Index: 12.2 ml/m2 TAPSE: 2.3 cm RA Area: 11.0 cm2 Additional Vessels Name Value Ao Ascendin.0 cm Findings: Left Ventricle: Normal size left ventricle. No LV hypertrophy. Normal global systolic LV function. EF is 74 %. No regional wall motion abnormality. Normal diastolic LV function. Right Ventricle: Normal size right ventricle. Normal RV function. Left Atrium: The left atrium is normal in size. An agitated saline study was performed and was negative for intracardiac shunting. Right Atrium: The right atrium is normal in size. Mitral Valve: The mitral valve is normal in appearance and function. There is no mitral valve regurgitation. No mitral stenosis is present. Aortic Valve: The aortic valve is tri-leaflet and functions normally. There is no aortic valve regurgitation. No aortic valve stenosis is present. Tricuspid Valve: The tricuspid valve is normal in appearance and function. There is no tricuspid valve regurgitation. Pulmonic Valve: The pulmonic valve is normal in appearance and function. There is no pulmonic regurgitation seen. Aorta: The aorta is normal. Normal size aortic root measuring 3.0 cm. Normal size ascending aorta measuring 3.0 cm. IVC: The IVC is normal sized. Pericardium: No pericardial effusion. (No Signature Object) Patient: TORIE ALDANA Study Date: 10/04/2017 Page 2 of 2 11:03 AM [id number]
== END 2017-10-04 15:12 | disposition home or self-care (01) ==
LOC: F3N 19:42
PROVIDERS: ADMIT Internal Medicine; ATTEND Internal Medicine
DX: R20.0 Anesthesia of skin (principal); F43.10 Post-traumatic stress disorder, unspecified; E11.9 Type 2 diabetes mellitus without complications; E78.5 Hyperlipidemia, unspecified
CPT/HCPCS: 70450; 70496; 70498; 70551; 92523; 93005; 93306; 97161; 97166; G0378; G8978; G8979; G8980; G8987; G8988; G8999; G9158; G9186; J1650; J2060; Q9967

== ENCOUNTER 2017-10-05 21:04 | Emergency (ER) | payer OTHER, MEDICAID ==
--- NOTE | 2017-10-05 21:59 | EDPHY ---
H & P Stated Complaint: maninder was DC'd from hospital having worst numbness and left shoulder pain Time Seen by Provider: 10/05/17 21:59 HPI/ROS: HPI CHIEF COMPLAINT: Numbness and tingling. HISTORY OF PRESENT ILLNESS: Patient is a 46-year-old female she was recently admitted here and discharged yesterday on the 10 for stroke like symptoms and had unremarkable stroke evaluation including a negative brain MRI. At that time she had right-sided numbness and tingling and they could not really explain what was causing this however was felt that it may be due to a recent in her family. Increased stressors. She now presents back to the emergency room with multitude of complaints including numbness tingling throughout her entire body. Additionally she reports to me she has pain that is become new throughout her entire body from head to toe. She also reports that she has a headache it is frontal throbbing in nature. She states all the symptoms started since being discharged. She does report she has increased stress and anxiety and a recent . She denies any chest pain. Denies significant shortness of breath. Her main complaint is diffuse full body pain and diffuse numbness and tingling. She denies focal weakness. Past Medical History: She has history PTSD, anxiety, diabetes. Past Surgical History: No recent surgical history Social History: Denies daily use of drugs alcohol tobacco. Family History: Noncontributory ROS REVIEW OF SYSTEMS: A comprehensive 10 point review of systems is otherwise negative aside from elements mentioned in the history of present illness. Exam Constitutional appears nontoxic triage nursing summary reviewed, vital signs reviewed, awake/alert. Eyes normal conjunctivae and sclera, EOMI, PERRLA. HENT normal inspection, atraumatic, moist mucus membranes, no epistaxis, neck supple/ no meningismus, no raccoon eyes. Respiratory clear to auscultation bilaterally, normal breath sounds, no respiratory distress, no wheezing. Cardiovascular rate normal, regular rhythm, no murmur, no edema, distal pulses normal. Gastrointestinal soft, non-tender, no rebound, no guarding, normal bowel sounds, no distension, no pulsatile mass. Genitourinary no CVA tenderness. Musculoskeletal no midline vertebral tenderness, full range of motion, no calf swelling, no tenderness of extremities, no meningismus, good pulses, neurovascularly intact. Skin pink, warm, & dry, no rash, skin atraumatic. Neurologic no focal neuro deficit on exam, no focal weakness, awake, alert and oriented x 3, AAOx3, moves all 4 extremities equally, motor intact, sensory intact, CN II-XII intact, normal cerebellar, normal vision, normal speech. Psychiatric flat affect. Heme/Lymph/Immune no lymphadenopathy. Differential Diagnosis: Includes but is not limited to in a particular order acute anxiety, panic attack, electrolyte disturbance, thyroid dysfunction, mood disorder, depression, grieving from a recent . Medical Decision Making: Plan for this patient will give a dose of IV Ativan to see if this helps with her symptoms, gentle IV hydration, obtain EKG, chest x -ray and CT scan of her head due to increasing headache. However clinically on exam neurological exam is unremarkable. Re-evaluation: CT scan head without contrast negative for acute abnormality. EKG interpretation by me on record in [facility]. Impression time of EKG 08/14/2002, sinus rhythm rate of 80, T-wave abnormality V1 V2. Otherwise unremarkable. 1203: Re-examination patient resting much more comfortable with IV Ativan. She has no complaints she states she feels much better after 1 mg IV Ativan. She states her numbness and tingling throughout her entire body has resolved. Blood work, x-ray, cat scan been reviewed. Is all reassuring. No evidence of acute bleed or disease process on the CT scan of the head. Electrolytes appropriate. She has a normal neurological exam here. Recommend close follow-up with her primary care doctor and follow up with Neurology as previously advised. Return precautions discussed. She understands. Source: Patient - Personal History LMP (Females 10-55): Hysterectomy Current Tetanus/Diphtheria Vaccine: Yes Current Tetanus Diphtheria and Acellular Pertussis (TDAP): Yes - Medical/Surgical History Hx Asthma: Yes Hx Chronic Respiratory Disease: No Hx Diabetes: Yes Hx Cardiac Disease: No Hx Renal Disease: No Hx Cirrhosis: No Hx Alcoholism: No Hx HIV/AIDS: No Hx Splenectomy or Spleen Trauma: No Other PMH: Diabetes 1, Asthma, Chronic functional abdominal pain, severe PTSD with psychotic episode (2013), Hysterectomy (knicked ureter), trigger release surg, carpal tunnel x 2 - Social History Smoking Status: Never smoked Constitutional: Initial Vital Signs Temperature (C) 36.7 C 05/11/18 21:06 Heart Rate 91 10/05/17 21:06 Respiratory Rate 16 10/05/17 21:06 Blood Pressure 135/98 H 10/05/17 21:06 O2 Sat (%) 96 10/05/17 21:06 O2 Delivery Mode Room Air Allergies/Adverse Reactions: Penicillins Allergy (Verified 10/05/17 21:09) NAUSEA PERCOCET Allergy (Uncoded 10/05/17 21:09) NAUSEA Home Medications: Medication Instructions Recorded Albuterol [Proventil Inhaler HFA 1 - 2 puffs IH Q4 PRN 09/01/13 (*)] Albuterol [Proventil Neb] 3 ml IH QID PRN 09/01/13 Aspirin [Aspirin 81mg (*)] 81 mg PO HS 09/01/13 Budesonide/Formoterol 160/4.5 1 puffs IH BID PRN 09/01/13 [Symbicort 160-4.5 Mcg Inh (*)] Cetirizine [ZyrTEC 10 mg (*)] 10 mg PO DAILY 09/01/13 Cholecalciferol Vit D3 [Vitamin D3 1,000 units PO BID 09/01/13 (*)] EPINEPHrine [Epipen 0.3 MG] 0.3 mg IM DAILY PRN 09/01/13 Herbals/Supplements -Info Only 1 each PO AD 09/01/13 Humalog Pump 1 each SC AD 09/01/13 Ibuprofen [Motrin (*)] 400 mg PO Q6H PRN 09/01/13 LORazepam [Ativan (*)] 1 mg PO BID PRN 09/01/13 Levothyroxine [Synthroid 25 mcg 25 mcg PO DAILY06 09/01/13 (*)] Montelukast Sodium [Singulair 10 10 mg PO DAILY 09/01/13 mg (*)] Multivitamins [Multivitamin (*)] 1 each PO DAILY 09/01/13 traZODone [traZODONE 50MG (*)] 100 - 150 mg PO HS 09/01/13 Ondansetron Odt [Zofran Odt 4 mg 4 mg PO Q4PRN PRN #20 tab 07/02/15 (*)] Atorvastatin Calcium [Lipitor 10 10 mg PO DAILY 10/03/17 mg (*)] Bupropion HCl [Wellbutrin Xl] 300 mg PO DAILY 10/03/17 Dicyclomine [Bentyl 20 MG (*)] 20 mg PO Q6H PRN 10/03/17 Estradiol [Estradiol 1 MG (*)] 1 mg PO DAILY 10/03/17 Gabapentin [Neurontin 100 MG (*)] 200 mg PO HS 10/03/17 Gabapentin [Neurontin 100 MG (*)] 300 mg PO DAILY 10/03/17 Linzess 1 ea PO DAILY 10/03/17 Omeprazole 40 mg PO DAILY 10/03/17 Prazosin HCl 8 mg PO HS 10/03/17 QUEtiapine FUMARATE [Seroquel 50 50 mg PO DAILY PRN 10/03/17 mg (*)] QUEtiapine FUMARATE [Seroquel 50 150 mg PO HS 10/03/17 mg (*)] Sertraline HCl [Zoloft 100mg (*)] 150 mg PO DAILY 10/03/17 Vraylar 1 ea PO DAILY 10/03/17 guaiFENesin [Mucinex 600 MG (*)] 1,200 mg PO BID 10/03/17 traMADol [Ultram 50 mg (*)] 50 mg PO DAILY PRN 10/03/17 LORazepam [Ativan] 1 mg PO DAILY #4 tablet 10/06/17 Medical Decision Making - Diagnostics Imaging Results: Imaging Impressions Head CT 10/05/17 22:07 Impression: 1. Normal CT brain without contrast. 2. No sinusitis. Findings and recommendations discussed with Emergency Department physician, Beau Padilla MD at 23:00 hour, 10/05/2017. Final report concurs with initial preliminary interpretation. Chest X-Ray 10/05/17 22:08 Impression: 1. No acute pulmonary disease. 2. Consider chest two views when the patient's medical condition permits. - Data Points Laboratory Results: Laboratory Results 10/05/17 22:15 10/05/17 22:15 10/05/17 10/05/17 10/05/17 22:30 22:15 22:15 WBC 7.22 10^3/uL 10^3/uL (3.80-9.50) RBC 4.30 10^6/uL 10^6/uL (4.18-5.33) Hgb 12.3 g/dL L g/dL (12.6-16.3) Hct 35.6 % L % (38.0-47.0) MCV 82.8 fL fL (81.5-99.8) MCH 28.6 pg pg (27.9-34.1) MCHC 34.6 g/dL g/dL (32.4-36.7) RDW 12.5 % % (11.5-15.2) Plt Count 301 10^3/uL 10^3/uL (150-400) MPV 10.1 fL fL (8.7-11.7) Neut % (Auto) 66.8 % % (39.3-74.2) Lymph % (Auto) 19.7 % % (15.0-45.0) [place] % (Auto) 7.6 % % (4.5-13.0) Eos % (Auto) 5.1 % % (0.6-7.6) Baso % (Auto) 0.7 % % (0.3-1.7) Nucleat RBC Rel Count 0.0 % % (0.0-0.2) Absolute Neuts (auto) 4.82 10^3/uL 10^3/uL (1.70-6.50) Absolute Lymphs (auto) 1.42 10^3/uL 10^3/uL (1.00-3.00) Absolute Monos (auto) 0.55 10^3/uL 10^3/uL (0.30-0.80) Absolute Eos (auto) 0.37 10^3/uL 10^3/uL (0.03-0.40) Absolute Basos (auto) 0.05 10^3/uL 10^3/uL (0.02-0.10) Absolute Nucleated RBC 0.00 10^3/uL 10^3/uL (0-0.01) Immature Gran % 0.1 % % (0.0-1.1) Immature Gran # 0.01 10^3/uL 10^3/uL (0.00-0.10) Sodium 137 mEq/L mEq/L (135-145) Potassium 4.7 mEq/L mEq/L (3.5-5.2) Chloride 104 mEq/L mEq/L (97-110) Carbon Dioxide 22 mEq/l D mEq/l (22-31) Anion Gap 11 mEq/L mEq/L (8-16) BUN 15 mg/dL mg/dL (7-23) Creatinine 0.7 mg/dL mg/dL (0.6-1.0) Estimated GFR > 60 Glucose 180 mg/dL H mg/dL (70-100) Calcium 8.7 mg/dL mg/dL (8.5-10.4) Total Bilirubin 0.5 mg/dL mg/dL (0.1-1.4) Conjugated Bilirubin 0.5 mg/dL mg/dL (0.0-0.5) Unconjugated Bilirubin 0.0 mg/dL mg/dL (0.0-1.1) AST 21 IU/L IU/L (14-46) ALT 28 IU/L IU/L (9-52) Alkaline Phosphatase 123 IU/L IU/L (38-126) Troponin I < 0.012 ng/mL ng/mL (0.000-0.034) Total Protein 6.3 g/dL g/dL (6.3-8.2) Albumin 3.7 g/dL g/dL (3.5-5.0) TSH Pending Urine Color PALE YELLOW Urine Appearance CLEAR Urine pH 5.0 (5.0-7.5) Ur Specific [place] 1.005 (1.002-1.030) Urine Protein NEGATIVE (NEGATIVE) Urine Ketones NEGATIVE (NEGATIVE) Urine Blood NEGATIVE (NEGATIVE) Urine Nitrate NEGATIVE (NEGATIVE) Urine Bilirubin NEGATIVE (NEGATIVE) Urine Urobilinogen NEGATIVE EU EU (0.2-1.0) Ur Leukocyte Esterase NEGATIVE (NEGATIVE) Urine Glucose NEGATIVE (NEGATIVE) Medications Given: Discontinued Medications Sodium Chloride (Ns) 1,000 mls @ 0 mls/hr IV EDNOW ONE; Wide Open PRN Reason: Protocol Stop: 10/05/17 22:08 Last Admin: 10/05/17 22:25 Dose: 1,000 mls Lorazepam (Ativan Injection) 1 mg IVP EDNOW ONE Stop: 10/05/17 22:08 Last Admin: 10/05/17 22:25 Dose: 1 mg Departure - Departure Disposition: Home, Routine, Self-Care Clinical Impression: Anxiety Condition: Good Instructions: Anxiety (ED) Additional Instructions: 1. Follow up with her primary care doctor. 2. Return emergency room if you have worsening symptoms questions or concerns Referrals: Adriana Rodrigez MD [Primary Care Provider] - As per Instructions Prescriptions: LORazepam [Ativan] 1 mg PO DAILY #4 tablet
[2017-10-05] MEDS ORDERED: NS 1,000 ML IV ONE (22:07)
[2017-10-05] MEDS ORDERED: LORazepam 2 MG/ML INJ IVP ONE (22:07)
[2017-10-05 22:35] LABS: PLATELET COUNT 301 10^3/uL (150-400)
--- NOTE | 2017-10-05 23:05 | CPEKG ---
Heart Rate: 80 RR Interval: 750 P-R Interval: 160 QRSD Interval: 86 QT Interval: 372 QTC Interval: 430 P [place]: 18 QRS [place]: 37 T Wave [place]: 46 EKG Severity - BORDERLINE ECG - EKG Impression: SINUS RHYTHM EKG Impression: BORDERLINE T ABNORMALITIES, ANTERIOR LEADS Electronically Signed By: Beau Padilla 06-Oct-2017 06:44:13
[2017-10-05] MEDS ORDERED: ACETAMINOPHEN 325 MG TAB ONE (23:30)
[2017-10-05 23:34] VITALS: BP 149/78
== END 2017-10-06 00:34 | disposition home or self-care (01) ==
DX: F41.9 Anxiety disorder, unspecified (principal); E86.9 Volume depletion, unspecified; E11.9 Type 2 diabetes mellitus without complications; J45.909 Unspecified asthma, uncomplicated; Z79.4 Long term (current) use of insulin; Z79.82 Long term (current) use of aspirin
CPT/HCPCS: 70450; 71045; 93005; 96374; 99285; J2060

== ENCOUNTER 2018-05-18 19:21 | Emergency (ER) | payer OTHER ==
[2018-05-18] MEDS ORDERED: ACETAMINOPHEN 500 MG TAB ONE (19:54)
[2018-05-18] MEDS ORDERED: NS 1,000 ML IV ONE (19:54)
[2018-05-18] MEDS ORDERED: ACETAMINOPHEN 500 MG TAB PO ONE (19:56)
[2018-05-18] MEDS ORDERED: IPRATROPIUM/ALBUTEROL 3 ML DEYVIAL IH ONE (20:16)
[2018-05-18] MEDS ORDERED: IBUPROFEN 800 MG TAB PO ONE (20:16)
--- NOTE | 2018-05-18 20:21 | EDPHY ---
H & P Time Seen by Provider: 05/18/18 19:37 HPI/ROS: HPI Cough, fever, muscle aches. 47-year-old female by private vehicle with her mother. She reports onset of dry , nonproductive cough yesterday with associated fevers and chills, shortness of breath, fatigue and muscle aches and joint aches. This has persisted and worsened through today. No ill contacts. ROS: Constitutional: As. Eyes: No discharge. No changes in vision. ENT: No sore throat. No nasal congestion or rhinorrhea. Respiratory: As. Cardiac: No chest pain, no palpitations. Gastrointestinal: No abdominal pain, no vomiting, no diarrhea. Genitourinary: No hematuria. No dysuria or increased frequency with urination. Musculoskeletal: No back pain. No neck pain. As. Skin: No rashes. Neurological: No headache. No focal weakness or altered sensation. Past medical history: Type 1 diabetes with an insulin pump, chronic functional abdominal pain, PTSD, hysterectomy, carpal tunnel surgery. Social history: Here with her mother. She does not smoke. No alcohol. Works at [employer]. Physical Exam: General Appearance: Alert, she appears uncomfortable, intermittent dry hacking cough. Diaphoretic. This patient is responding to questions appropriately and in full sentences. This patient appears well-hydrated and well-nourished. Eyes: Pupils equal and round no pallor or injection. No lid edema, erythema or injection. ENT, Mouth: Mucous membranes are moist. Diffuse and mild pharyngeal erythema. The pharyngeal tissues are otherwise unremarkable. No edema or swelling. No asymmetry suggestive of abscess. No exudates. Respiratory: There are no retractions, moderate to good air movement bilaterally with scant wheezing on exhalation from the upper [place]. Intermittent dry hacking cough. No tachypnea. Cardiovascular: Regular rate and rhythm. Mild tachycardia. No murmur. Gastrointestinal: Abdomen is soft and nontender, no masses, bowel sounds normal. No focal tenderness at McBurney's point. No Aguilar sign. Neurological: Motor sensory function is grossly intact. Cranial nerves are normal. Gait is normal. Skin: Warm and dry, no rashes. Musculoskeletal: Neck is supple and nontender. No pain on flexion of the neck. No appreciable cervical, submandibular, submental lymphadenopathy. Extremities are symmetrical. All joints range without pain or impingement. Psychiatric: No agitation. No depression. Database: EKG: Imaging: Chest x-ray PA and lateral; the cardiac mediastinal silhouette is unremarkable. No evidence of infiltrate or pneumothorax. Findings consistent with bronchitis. No of acute cardiopulmonary disease process noted. Interpreted by me. Procedures: Emergency department course: Triage vital signs reviewed. She is febrile. She is mildly tachycardic and she is hypertensive. IV placed. She was started on IV normal saline with 1 L to be given over the next hour. She was given 1 g of Tylenol and 800 mg of ibuprofen for treatment of fever. She will also be given DuoNeb [id number]. Respiratory pathogen panel and chest x-ray to be obtained. 9:20 p.m., patient re-evaluated, pulse oximetry on room air is 97%. cardiac monitor shows a narrow complex sinus rhythm with ventricular rate of 88. She is feeling better at this time. Her presentation is consistent with influenza. I discussed results of her chest x-ray. I will start her on Tamiflu. She was given 75 mg in the emergency department. I discussed observation admission. She feels comfortable going home and is requesting discharge with her mother. She will stay with her mother jorge. I will send her home with an additional dose of Tamiflu to be taken in the morning and then a prescription for the rest. Follow-up and return to emergency department precautions discussed. Fever control, oral hydration and supportive care discussed with her and her mother. Return to emergency department precautions thoroughly reviewed. All of their questions were answered. The patient was discharged in good condition with her mother. Differential Diagnosis: The differential diagnosis on this patient includes but is not limited to pneumonia, influenza, viral bronchitis. This represents a partial list of diagnoses considered. These considerations are based on history, physical exam , past history, reassessment and diagnostic testing. Smoking Status: Never smoked Constitutional: Initial Vital Signs Temperature (C) 39.3 C H 05/18/18 19:35 Heart Rate 110 H 05/18/18 19:35 Respiratory Rate 20 05/18/18 19:35 Blood Pressure 181/82 H 05/18/18 19:35 O2 Sat (%) 96 05/18/18 19:35 O2 Delivery Mode Room Air Allergies/Adverse Reactions: Penicillins Allergy (Verified 05/18/18 19:33) NAUSEA PERCOCET Allergy (Uncoded 05/18/18 19:33) NAUSEA Home Medications: Medication Instructions Recorded Albuterol [Proventil Inhaler HFA 1 - 2 puffs IH Q4 PRN 09/01/13 (*)] Albuterol [Proventil Neb] 3 ml IH QID PRN 09/01/13 Aspirin [Aspirin 81mg (*)] 81 mg PO HS 09/01/13 Budesonide/Formoterol 160/4.5 1 puffs IH BID PRN 09/01/13 [Symbicort 160-4.5 Mcg Inh (*)] Cetirizine [ZyrTEC 10 mg (*)] 10 mg PO DAILY 09/01/13 Cholecalciferol Vit D3 [Vitamin D3 1,000 units PO BID 09/01/13 (*)] EPINEPHrine [Epipen 0.3 MG] 0.3 mg IM DAILY PRN 09/01/13 Herbals/Supplements -Info Only 1 each PO AD 09/01/13 Humalog Pump 1 each SC AD 09/01/13 Ibuprofen [Motrin (*)] 400 mg PO Q6H PRN 09/01/13 LORazepam [Ativan (*)] 1 mg PO BID PRN 09/01/13 Levothyroxine [Synthroid 25 mcg 25 mcg PO DAILY06 09/01/13 (*)] Montelukast Sodium [Singulair 10 10 mg PO DAILY 09/01/13 mg (*)] Multivitamins [Multivitamin (*)] 1 each PO DAILY 09/01/13 traZODone [traZODONE 50MG (*)] 100 - 150 mg PO HS 09/01/13 Ondansetron Odt [Zofran Odt 4 mg 4 mg PO Q4PRN PRN #20 tab 07/02/15 (*)] Atorvastatin Calcium [Lipitor 10 10 mg PO DAILY 10/03/17 mg (*)] Bupropion HCl [Wellbutrin Xl] 300 mg PO DAILY 10/03/17 Dicyclomine [Bentyl 20 MG (*)] 20 mg PO Q6H PRN 10/03/17 Estradiol [Estradiol 1 MG (*)] 1 mg PO DAILY 10/03/17 Gabapentin [Neurontin 100 MG (*)] 200 mg PO HS 10/03/17 Gabapentin [Neurontin 100 MG (*)] 300 mg PO DAILY 10/03/17 Linzess 1 ea PO DAILY 10/03/17 Omeprazole 40 mg PO DAILY 10/03/17 Prazosin HCl 8 mg PO HS 10/03/17 QUEtiapine FUMARATE [Seroquel 50 50 mg PO DAILY PRN 10/03/17 mg (*)] QUEtiapine FUMARATE [Seroquel 50 150 mg PO HS 10/03/17 mg (*)] Sertraline HCl [Zoloft 100mg (*)] 150 mg PO DAILY 10/03/17 Vraylar 1 ea PO DAILY 10/03/17 guaiFENesin [Mucinex 600 MG (*)] 1,200 mg PO BID 10/03/17 traMADol [Ultram 50 mg (*)] 50 mg PO DAILY PRN 10/03/17 LORazepam [Ativan] 1 mg PO DAILY #4 tablet 10/06/17 Oseltamivir Phosphate [Tamiflu 75 75 mg PO BID #8 cap 05/18/18 mg (RX)] Medical Decision Making - Diagnostics Imaging Results: Imaging Impressions Chest X-Ray 05/18/18 19:37 Impression: Prominence of perihilar interstitial markings and peribronchial cuffing. Findings are nonspecific but can be seen with bronchitis, reactive airway disease, or viral process. - Data Points Laboratory Results: Laboratory Results 05/18/18 20:10 05/18/18 20:10 05/18/18 05/18/18 20:10 20:10 WBC 6.62 10^3/uL 10^3/uL (3.80-9.50) RBC 4.61 10^6/uL 10^6/uL (4.18-5.33) Hgb 12.8 g/dL g/dL (12.6-16.3) Hct 36.7 % L % (38.0-47.0) MCV 79.6 fL L fL (81.5-99.8) MCH 27.8 pg L pg (27.9-34.1) MCHC 34.9 g/dL g/dL (32.4-36.7) RDW 12.9 % % (11.5-15.2) Plt Count 262 10^3/uL 10^3/uL (150-400) MPV 10.0 fL fL (8.7-11.7) Neut % (Auto) 78.9 % H % (39.3-74.2) Lymph % (Auto) 8.3 % L % (15.0-45.0) Casey % (Auto) 11.8 % % (4.5-13.0) Eos % (Auto) 0.2 % L % (0.6-7.6) Baso % (Auto) 0.3 % % (0.3-1.7) Nucleat RBC Rel Count 0.0 % % (0.0-0.2) Absolute Neuts (auto) 5.22 10^3/uL 10^3/uL (1.70-6.50) Absolute Lymphs (auto) 0.55 10^3/uL L 10^3/uL (1.00-3.00) Absolute Monos (auto) 0.78 10^3/uL 10^3/uL (0.30-0.80) Absolute Eos (auto) 0.01 10^3/uL L 10^3/uL (0.03-0.40) Absolute Basos (auto) 0.02 10^3/uL 10^3/uL (0.02-0.10) Absolute Nucleated RBC 0.00 10^3/uL 10^3/uL (0-0.01) Immature Gran % 0.5 % % (0.0-1.1) Immature Gran # 0.03 10^3/uL 10^3/uL (0.00-0.10) RBC/WBC/PLT Morphology TNP Platelet Estimate ADEQUATE (ADEQ) Polychromasia 1+ H Microcytic Cells 1+ H Acanthocytes (Spur) 1+ H Sodium 131 mEq/L L mEq/L (135-145) Potassium 3.6 mEq/L mEq/L (3.5-5.2) Chloride 100 mEq/L mEq/L (97-110) Carbon Dioxide 23 mEq/l mEq/l (22-31) Anion Gap 8 mEq/L mEq/L (6-14) BUN 13 mg/dL mg/dL (7-23) Creatinine 0.8 mg/dL mg/dL (0.6-1.0) Estimated GFR > 60 Glucose 279 mg/dL H mg/dL (70-100) Calcium 8.8 mg/dL mg/dL (8.5-10.4) Medications Given: Discontinued Medications Acetaminophen (Tylenol) 1,000 mg PO EDNOW ONE Stop: 05/18/18 19:57 Last Admin: 05/18/18 20:06 Dose: 1,000 mg Albuterol/Ipratropium (Duoneb) 3 ml IH EDNOW ONE Stop: 05/18/18 20:17 Last Admin: 05/18/18 20:40 Dose: 3 ml Sodium Chloride (Ns) 1,000 mls @ 0 mls/hr IV ONCE ONE; Wide Open PRN Reason: Protocol Stop: 05/18/18 19:55 Last Admin: 05/18/18 20:07 Dose: 1,000 mls Ibuprofen (Motrin) 800 mg PO EDNOW ONE Stop: 05/18/18 20:17 Last Admin: 05/18/18 20:38 Dose: 800 mg Departure - Departure Disposition: Home, Routine, Self-Care Clinical Impression: Dyspnea, Bronchitis, Influenza Condition: Good Instructions: Influenza (ED) Additional Instructions: Read and follow provided instructions. Follow-up with your primary care physician on Sunday for re-evaluation as discussed. Take medication as prescribed for treatment of influenza. Used your albuterol inhaler liberally. 1-2 puffs every 2-4 hours as needed for cough and shortness of breath. Ibuprofen dosin mg every 6 hours with meals for the next 3 days only. Take only as needed for pain. You can take 1 g of Tylenol every 8 hr for fever control as well for the next 2- 3 days. Keep well hydrated as discussed. A good fluid to drink is Gatorade mixed with water over ice in a 1-1 dilution. Return to the emergency department for worsening symptoms, high fever, difficulty breathing, worsening cough or other serious concerns. You're not to return to work until your asymptomatic. Referrals: NONE *PRIMARY CARE P,. [Primary Care Provider] - As per Instructions Prescriptions: Oseltamivir Phosphate [Tamiflu 75 mg (RX)] 75 mg PO BID #8 cap
[2018-05-18 20:30] LABS: PLATELET COUNT 262 10^3/uL (150-400)
[2018-05-18] MEDS ORDERED: OSELTAMIVIR PHOSPHATE 75 MG CAP PO ONE ×2 (20:55→20:56)
[2018-05-18 21:59] VITALS: BP 131/72
== END 2018-05-18 21:57 | disposition home or self-care (01) ==
DX: J11.1 Influenza due to unidentified influenza virus with other respiratory manifestations (principal); E86.9 Volume depletion, unspecified

== ENCOUNTER 2018-10-04 12:59 | Emergency (ER) | payer OTHER, MEDICAID ==
[2018-10-04 13:07] VITALS: BP 151/71
--- NOTE | 2018-10-04 13:09 | EDPHY ---
H & P Stated Complaint: started flagyl feeling dehydrated increased glucose/saw pcp yesterday rx pr Time Seen by Provider: 10/04/18 13:09 - Personal History LMP (Females 10-55): Hysterectomy Current Tetanus Diphtheria and Acellular Pertussis (TDAP): Yes - Medical/Surgical History Hx Asthma: Yes Hx Chronic Respiratory Disease: No Hx Diabetes: Yes Hx Cardiac Disease: No Hx Renal Disease: No Hx Cirrhosis: No Hx Alcoholism: No Hx HIV/AIDS: No Hx Splenectomy or Spleen Trauma: No Other PMH: Diabetes 1, Asthma, Chronic functional abdominal pain, severe PTSD with psychotic episode (2013), Hysterectomy (knicked ureter), trigger release surg, carpal tunnel x 2 - Social History Smoking Status: Never smoked Constitutional: Initial Vital Signs Temperature (C) 36.6 C 10/04/18 13:03 Heart Rate 92 10/04/18 13:03 Respiratory Rate 18 10/04/18 13:03 Blood Pressure 151/71 H 10/04/18 13:03 O2 Sat (%) 96 10/04/18 13:03 O2 Delivery Mode Room Air Allergies/Adverse Reactions: Penicillins Allergy (Verified 10/04/18 13:01) NAUSEA PERCOCET Allergy (Uncoded 05/18/18 19:33) NAUSEA Home Medications: Medication Instructions Recorded Albuterol [Proventil Inhaler HFA 1 - 2 puffs IH Q4 PRN 09/01/13 (*)] Albuterol [Proventil Neb] 3 ml IH QID PRN 09/01/13 Aspirin [Aspirin 81mg (*)] 81 mg PO HS 09/01/13 Budesonide/Formoterol 160/4.5 1 puffs IH BID PRN 09/01/13 [Symbicort 160-4.5 Mcg Inh (*)] Cetirizine [ZyrTEC 10 mg (*)] 10 mg PO DAILY 09/01/13 Cholecalciferol Vit D3 [Vitamin D3 1,000 units PO BID 09/01/13 (*)] EPINEPHrine [Epipen 0.3 MG] 0.3 mg IM DAILY PRN 09/01/13 Herbals/Supplements -Info Only 1 each PO AD 09/01/13 Humalog Pump 1 each SC AD 09/01/13 Ibuprofen [Motrin (*)] 400 mg PO Q6H PRN 09/01/13 LORazepam [Ativan (*)] 1 mg PO BID PRN 09/01/13 Levothyroxine [Synthroid 25 mcg 25 mcg PO DAILY06 09/01/13 (*)] Montelukast Sodium [Singulair 10 10 mg PO DAILY 09/01/13 mg (*)] Multivitamins [Multivitamin (*)] 1 each PO DAILY 09/01/13 traZODone [traZODONE 50MG (*)] 100 - 150 mg PO HS 09/01/13 Ondansetron Odt [Zofran Odt 4 mg 4 mg PO Q4PRN PRN #20 tab 07/02/15 (*)] Atorvastatin Calcium [Lipitor 10 10 mg PO DAILY 10/03/17 mg (*)] Bupropion HCl [Wellbutrin Xl] 300 mg PO DAILY 10/03/17 Dicyclomine [Bentyl 20 MG (*)] 20 mg PO Q6H PRN 10/03/17 Estradiol [Estradiol 1 MG (*)] 1 mg PO DAILY 10/03/17 Gabapentin [Neurontin 100 MG (*)] 200 mg PO HS 10/03/17 Gabapentin [Neurontin 100 MG (*)] 300 mg PO DAILY 10/03/17 Linzess 1 ea PO DAILY 10/03/17 Omeprazole 40 mg PO DAILY 10/03/17 Prazosin HCl 8 mg PO HS 10/03/17 QUEtiapine FUMARATE [Seroquel 50 50 mg PO DAILY PRN 10/03/17 mg (*)] QUEtiapine FUMARATE [Seroquel 50 150 mg PO HS 10/03/17 mg (*)] Sertraline HCl [Zoloft 100mg (*)] 150 mg PO DAILY 10/03/17 Vraylar 1 ea PO DAILY 10/03/17 guaiFENesin [Mucinex 600 MG (*)] 1,200 mg PO BID 10/03/17 traMADol [Ultram 50 mg (*)] 50 mg PO DAILY PRN 10/03/17 LORazepam [Ativan] 1 mg PO DAILY #4 tablet 10/06/17 Oseltamivir Phosphate [Tamiflu 75 75 mg PO BID #8 cap 05/18/18 mg (RX)] Cetirizine 10/04/18 Famotidine [Pepcid 20 MG (*)] 20 mg PO DAILY #20 tab 10/04/18 Hydroxyzine Pamoate [Vistaril] 25 mg PO Q4-6PRN PRN #20 capsule 10/04/18 Insulin Pump Cartridge 10/04/18 Triazolam [Halcion 0.25MG (*)] 0.25 mg PO HS PRN #14 tab 10/04/18 predniSONE 10/04/18 Medical Decision Making ED Course/Re-evaluation: CHIEF COMPLAINT: Rash HISTORY OF PRESENT ILLNESS: The patient is a 47 y/o female with a history of diabetes complaining of a rash after starting Flagyl on September 19. Several days ago she developed an all-over rash. Due to the rash she has had difficulty sleeping. She saw her PCP yesterday and was prescribed Prednisone. She has also been taking Benadryl and doing oatmeal baths. No fever, headache, body aches, lightheadedness, chest pain , heart palpitations, shortness of breath, cough, abdominal pain, urinary or bowel complaints, numbness, paresthesias. REVIEW OF SYSTEMS: A comprehensive 10 system review of systems is otherwise negative aside from elements mentioned in the history of present illness and medical decision making. PHYSICAL EXAM: HR, BP, O2 Sat, RR. Temp noted General Appearance: Alert, well hydrated, appropriate, and non-toxic appearing. Head: Atraumatic without scalp tenderness or obvious injury Eyes: Pupils equal, round, reactive to light and accommodation, EOMI, no trauma , no injection. Ears: Clear bilaterally, no perforation, normal landmarks Nose: Atraumatic, no rhinorrhea, clear. Throat: There is no erythema or exudates, no lesions, normal tonsils, mucus membranes moist. Neck: Supple, 2+ carotid upstroke, nontender, no lymphadenopathy. Respiratory: No retractions, no distress, no wheezes, and no accessory muscle use. Lungs are clear to auscultation bilaterally. Cardiovascular: Regular rate and rhythm, no murmurs, rubs, or gallops. Bilateral carotid, radial, dorsalis pedis, and posterior tibial pulses intact. Good capillary refill all extremities. Gastrointestinal: Abdomen is soft, nontender, non-distended, no masses, no rebound, no guarding, no peritoneal signs. Musculoskeletal: Normal active ROM of all extremities, atraumatic. Neurological: Alert, appropriate, and interactive. The patient has normal DTRs and non-focal cranial nerves, motor, sensory, and cerebellar exam. Skin: Good turgor, no nodules on palpation. Past medical history: Diabetes 1, asthma, chronic functional abdominal pain, severe PTSD with psychotic episode Past surgical history: Hysterectomy, trigger release surgery Family history: Denies Social history: Mother at bedside, not employed DIAGNOSTICS/PROCEDURES/CRITICAL CARE TIME: Not indicated. DIFFERENTIAL DIAGNOSIS: The differential diagnosis included but was not limited to angioedema, anaphylaxis, anaphylactoid reaction, urticarial reaction, and other infectious causes for skin rash. MEDICAL DECISION MAKING: The patient is a 47 y/o female with a history of diabetes presenting with an all -over rash after starting Flagyl on September 19. Due to the rash she has had difficulty sleeping. She saw her PCP yesterday and was prescribed Prednisone. She has also been taking Benadryl and doing oatmeal baths. On exam she has a macular papular and urticarial rash all over her trunk. I suspect this is a reaction to Flagyl. 1mg PO Ativan and 25mg PO Hydroxyzine administered. I have also prescribed her Vistaril for itching, Pepcid, and Halcion for sleeping. I have advised her to stop taking Benadryl. Return precautions provided; patient is comfortable with this plan. - Data Points Medications Given: Discontinued Medications Hydroxyzine HCl (Hydroxyzine Hcl) 25 mg PO EDNOW ONE Stop: 10/04/18 13:20 Last Admin: 10/04/18 13:37 Dose: 25 mg Lorazepam (Ativan) 1 mg PO EDNOW ONE Stop: 10/04/18 13:23 Last Admin: 10/04/18 13:37 Dose: 1 mg Departure - Departure Disposition: Home, Routine, Self-Care Clinical Impression: Rash Allergic reaction Qualifiers: Encounter type: initial encounter Qualified Code(s): T78.40XA - Allergy, unspecified, initial encounter Condition: Good Instructions: Acute Rash (ED), Antibiotic Medication Allergy (ED), General Allergic Reaction (ED) Additional Instructions: 1. Use Vistaril as prescribed. 2. Stop taking Benadryl. 3. Take Pepcid as prescribed. 4. Take Halcion as prescribed for sleeping. 5. Follow-up with your primary doctor within 72 hours. 6. Return to the Emergency Department for shortness of breath, difficulty swallowing, difficulty breathing, worsening of rash, fever or other worsening of condition. Referrals: [facility],. [Clinic] - As per Instructions Prescriptions: Famotidine [Pepcid 20 MG (*)] 20 mg PO DAILY #20 tab Hydroxyzine Pamoate [Vistaril] 25 mg PO Q4-6PRN PRN #20 capsule PRN Reason: Itching Triazolam [Halcion 0.25MG (*)] 0.25 mg PO HS PRN #14 tab PRN Reason: Sleep/Insomnia Report Scribed for: Rishi Arredondo Report Scribed by: Prema Martinez Date of Report: 10/04/18 Time of Report: 13:09
[2018-10-04] MEDS ORDERED: hydrOXYzine HCL 25 MG TAB PO ONE (13:19)
[2018-10-04] MEDS ORDERED: LORazepam 1 MG TAB PO ONE (13:22)
== END 2018-10-04 13:44 | disposition home or self-care (01) ==
DX: L27.0 Generalized skin eruption due to drugs and medicaments taken internally (principal); T37.3X5A Adverse effect of other antiprotozoal drugs, initial encounter; E10.9 Type 1 diabetes mellitus without complications

== ENCOUNTER → 2018-10-18 | Outpatient (CLI) | payer OTHER, MEDICAID | LOC: FIMAGING 15:03 | PROVIDERS: ATTEND Neurological Surgery | DX: Z12.31 Encounter for screening mammogram for malignant neoplasm of breast (principal); M51.26 Other intervertebral disc displacement, lumbar region; M79.609 Pain in unspecified limb ==

== ENCOUNTER 2018-11-13 13:26 | Emergency (ER) | payer OTHER, MEDICAID | END 2018-11-13 15:26 | disposition home or self-care (01) ==